=== PATIENT | female | born 1970 | race African-American/Black ===

== ENCOUNTER 2016-07-19 15:06 | Emergency (ER) | payer BC, OTHER ==
[2016-07-19 15:19] VITALS: BP 125/74; PULSE 87; TEMP 98.5; BMI 37.4
--- NOTE | 2016-07-19 16:15 | PDOC ---
History of Present Illness - General Chief Complaint: Headache Stated Complaint: LT EYE PAIN, HEADACHE Time Seen by Provider: 07/19/16 16:13 History Source: Patient, Parent(s) Exam Limitations: No Limitations - History of Present Illness Initial Comments: 07/19/16 16:29 Patient here with complaints of left eye pain pain. States is in school studying psychology, and has been doing excessive amounts of reading with her class work and states while doing her studying has onset of pain to her left eye. Patient does not suffer from headaches, has had no fever, earache, sore throat pain or cough. Has used Motrin yesterday with some relief of pain. Denies trauma to her eye, denies visual changes, denies any discharge or redness to her eye. No one at home sick with conjunctivitis. Full-time, attend school in the evening, and spends multiple hours after school studying. Wears glasses for reading 07/19/16 16:33 2-3 days Severity: Yes: mild, moderate Associated Symptoms: reports: fever/chills. denies: confusion, fatigue Past History - Travel Traveled outside of the country in the last 30 days: No Close contact w/someone who was outside of country & ill: No - Past Medical History Allergies/Adverse Reactions: Allergies Allergy/AdvReac Type Severity Reaction Status Date / Time No Known Allergies Allergy Verified 07/19/16 15:16 Home Medications: Ambulatory Orders Albuterol 0.083% Nebulizer Eli [Ventolin 0.083%] 1 neb NEB Q4H PRN 03/19/15 Naproxen [Naprosyn] 500 mg PO BID PRN #20 tablet 03/19/15 Asthma: Yes Cancer: No GI Disorders: No HTN: No - Family Disease History Family Disease History: Diabetes: Grandparents, Father, Heart Disease: Father - Reproductive History (#): 4 Para: 4 - Immunization History Immunization Up to Date: Yes - Psycho/Social/Smoking Cessation Hx Anxiety: No Suicidal Ideation: No Smoking Status: No Smoking History: Never smoked Number of Cigarettes Smoked Daily: 0 Information on smoking cessation initiated: No Hx Alcohol Use: No Drug/Substance Use Hx: No Substance Use Type: None Review of Systems - Review of Systems Able to Perform ROS?: Yes Is the patient limited Nepali proficient: Yes Constitutional: Yes: Symptoms Reported, See HPI. No: Fever HEENTM: Yes: Symptoms Reported, See HPI, Eye Pain. No: Blurred Vision, Tearing , Recent change in vision, Double Vision, Ear Pain, Throat Pain Respiratory: Yes: Symptoms reported. No: Cough All Other Systems: Reviewed and Negative *Physical Exam - Vital Signs Last Vital Signs Temp Pulse Resp BP Pulse Ox 98.5 F 87 20 125/74 95 07/19/16 15:16 07/19/16 15:16 07/19/16 15:16 07/19/16 15:16 07/19/16 15:16 - Physical Exam General Appearance: Yes: Appropriately Dressed, Apparent Distress HEENT: positive: JOHNATHAN, Normal ENT Inspection, TMs Normal, Pharynx Normal. negative: Rhinorrhea Neck: positive: Tender, Supple, Lymphadenopathy (R), Lymphadenopathy (L) Respiratory/Chest: positive: Lungs Clear, Normal Breath Sounds Integumentary: positive: Normal Color, Dry, Warm Neurologic: positive: skull grinder II-XII NML intact, Fully Oriented, Alert, Normal Mood/ Affect, Normal Response, Motor Strength 5/5 Progress Note - Progress Note Progress Note: Patient with eyestrain, will recommend lubricating drops, frequent rest periods between heavy reading, and follow-up with shear grinder operator for thorough eye exam. *DC/Admit/Observation/Transfer Diagnosis at time of Disposition: Eyestrain, left - Discharge Dispostion Disposition: HOME Condition at time of disposition: Stable Admit: No - Referrals Referrals: Pattie Orozco [Primary Care Provider] - Daniel Lazar MD [Staff Physician] - - Patient Instructions Printed Discharge Instructions: DI for Eye Pain Additional Instructions: Rest, avoid rubbing eyes Wash hands frequently avoid excessive reading episodes, and be sure to use reading glasses. Use lubricating drops to keep eyes moist, not Visine. May use ibuprofen 2 tablets every 6 hours as needed for pain relief Followup with ophthalmology for thorough eye evaluation Return to emergency department for worsened pain, visual changes, redness or draining from eye, or worsened headache. - Post Discharge Activity Work/School Note: Back to Work
[2016-07-19] MEDS ORDERED: IBUPROFEN 600 MG TABLET (FP) PO ONE ×2 (16:28→16:29)
== END 2016-07-19 17:00 | disposition home or self-care (01) ==
LOC: JERFT 15:06
DX: H53.19 Other subjective visual disturbances (principal)
CPT/HCPCS: 99281-25

== ENCOUNTER 2017-03-22 16:34 | Emergency (ER) | payer OTHER ==
[2017-03-22 16:40] VITALS: BP 141/80; PULSE 90; TEMP 98.2; BMI 37.8
--- NOTE | 2017-03-22 17:02 | PDOC ---
History of Present Illness - General Chief Complaint: Pain Stated Complaint: PAIN Time Seen by Provider: 03/22/17 16:43 History Source: Patient Exam Limitations: No Limitations - History of Present Illness Initial Comments: 03/22/17 16:57 Patient is a 46-year-old female, history of asthma presents with macular pruritic lesions to bilateral feet. Patient denies any new lotion soaps or detergents, denies travel. Past Medical History: Denies. Allergies: No known allergies Medications: None Family History: Non-contributory Social History: Denies smoking, alcohol use, or IVDU Review of Systems GENERAL/CONSTITUTIONAL: No fever or chills. No weakness. No weight change. HEAD, EYES, EARS, NOSE AND THROAT: No change in vision. No ear pain or discharge. No sore throat. CARDIOVASCULAR: No chest pain or shortness of breath. RESPIRATORY: No cough, wheezing, or hemoptysis. GASTROINTESTINAL: No nausea, vomiting, diarrhea or constipation. No rectal bleeding. GENITOURINARY: No dysuria, frequency, or change in urination. MUSCULOSKELETAL: No joint or muscle swelling or pain. No neck or back pain. SKIN : No rash or easy bruising. Macular pruritic lesions to bilateral second third fourth and fifth toes. NEUROLOGIC: No headache, vertigo, loss of consciousness, or loss of sensation. ENDOCRINE: No increased thirst. No abnormal weight change. HEMATOLOGIC/LYMPHATIC: No anemia, easy bleeding, or history of blood clots. ALLERGIC/IMMUNOLOGIC: No hives or skin allergy. No latex allergy. Physical Exam: GENERAL: The patient is awake, alert, and fully oriented, in no acute distress. HEAD: Normal with no signs of trauma. EYES: Pupils equal, round and reactive to light, extraocular movements intact, sclera anicteric, conjunctiva clear. ENT: Ears normal, nares patent, oropharynx clear without exudates. Moist mucous membranes. No uvula deviation NECK: Normal range of motion, supple without lymphadenopathy, JVD, or masses. LUNGS: Breath sounds equal, clear to auscultation bilaterally. No wheezes, and no crackles. HEART: Regular rate and rhythm, normal S1 and S2 without murmur, rub or gallop. ABDOMEN: Soft, nontender, normoactive bowel sounds. No guarding, no rebound. No masses. No bruising or abrasions MUSCULOSKELETAL: Normal range of motion, no edema. No clubbing or cyanosis. No cords, erythema, or tenderness. No CVA Tenderness with fist. SKIN: Warm, Dry, normal turgor, Macular pruritic lesions to bilateral second third fourth and fifth toes. Edema to bilateral feet patient reports area started to become edematous after scratching Past History - Past Medical History Allergies/Adverse Reactions: Allergies Allergy/AdvReac Type Severity Reaction Status Date / Time No Known Allergies Allergy Verified 03/22/17 16:38 Home Medications: Ambulatory Orders Permethrin 5% Topical Cream [Elimite -] 1 applic TP WEEKLY #2 tube 03/22/17 Asthma: Yes Cancer: No GI Disorders: No HTN: No - Family Disease History Family Disease History: Diabetes: Grandparents, Father, Heart Disease: Father - Reproductive History (#): 4 Para: 4 - Immunization History Immunization Up to Date: Yes - Suicide/Smoking/Psychosocial Hx Smoking Status: No Smoking History: Never smoked Number of Cigarettes Smoked Daily: 0 Hx Alcohol Use: No Drug/Substance Use Hx: No Substance Use Type: None *Physical Exam - Vital Signs Last Vital Signs Temp Pulse Resp BP Pulse Ox 98.2 F 90 18 141/80 98 03/22/17 16:37 03/22/17 16:37 03/22/17 16:37 03/22/17 16:37 03/22/17 16:37 Medical Decision Making - Medical Decision Making 03/22/17 17:03 A/P: Patient here for evaluation of macular pruritic lesions to bilateral feet which started on 03/18/2017. Findings consistent with scabies will discharge on Elimite cream, with strict instructions for application and follow- up follow-up with dermatology. I discussed the physical exam findings, ancillary test results and final diagnoses with the patient. I answered all of the patient's questions. The patient was satisfied with the care received and felt comfortable with the discharge plan and treatment plan. The patient will call to arrange follow-up and will return to the Emergency Department with any new, persistent or worsening symptoms. *DC/Admit/Observation/Transfer Diagnosis at time of Disposition: Scabies - Discharge Dispostion Disposition: HOME Condition at time of disposition: Good Admit: No - Prescriptions Prescriptions: Permethrin 5% Topical Cream [Elimite -] 1 applic TP WEEKLY #2 tube - Referrals Referrals: Lincoln Saha [Non Staff, Medical] - ([phone]) - Patient Instructions Printed Discharge Instructions: DI for Scabies Additional Instructions: Please apply cream from head to toe leave on for 8 hours then wash off, repeat again in one week I do recommend washing sheets and towels in your home with high heat. If symptoms start to worsen him including fever, increased redness or swelling, may return back to ER, if symptoms do not resolve recommend follow-up with dermatology - Post Discharge Activity Forms/Work/School Notes: Back to Work
== END 2017-03-22 17:04 | disposition home or self-care (01) ==
LOC: JERFT 16:34
DX: B86 Scabies (principal)
CPT/HCPCS: 99281-25

== ENCOUNTER 2017-03-24 14:59 | Emergency (ER) | payer OTHER ==
[2017-03-24 15:08] VITALS: BMI 37.8
[2017-03-24] MEDS ORDERED: CLINDAMYCIN 600MG PREMIX IVPB 50 ML IVPB ONE ×3 (15:46→16:07)
[2017-03-24] MEDS ORDERED: KETOROLAC TROMETHAMINE 30 MG/1 ML VIAL IVPUSH ONE (15:47)
--- NOTE | 2017-03-24 15:53 | PDOC ---
History of Present Illness - General Chief Complaint: Edema Stated Complaint: LEGS PAIN Time Seen by Provider: 03/24/17 15:37 History Source: Patient - History of Present Illness Occurred: reports: other Lower Extremity Pain Location: bilateral: foot Past History - Past Medical History Allergies/Adverse Reactions: Allergies Allergy/AdvReac Type Severity Reaction Status Date / Time No Known Allergies Allergy Verified 03/24/17 15:08 Home Medications: Ambulatory Orders Permethrin 5% Topical Cream [Elimite -] 1 applic TP WEEKLY #2 tube 03/22/17 Clindamycin [Cleocin -] 300 mg PO Q6HPO #28 capsule 03/24/17 Terbinafine [Lamisil At] 12 gm TP BID #1 gel..gram. 03/24/17 Asthma: Yes Cancer: No GI Disorders: No HTN: No - Family Disease History Family Disease History: Diabetes: Grandparents, Father, Heart Disease: Father - Reproductive History (#): 4 Para: 4 - Immunization History Immunization Up to Date: Yes - Suicide/Smoking/Psychosocial Hx Smoking Status: No Smoking History: Never smoked Number of Cigarettes Smoked Daily: 0 Hx Alcohol Use: No Drug/Substance Use Hx: No Substance Use Type: None Review of Systems - Review of Systems Constitutional: No: Chills, Fever *Physical Exam - Vital Signs Last Vital Signs Temp Pulse Resp BP Pulse Ox 99.3 F 84 20 119/65 100 03/24/17 15:04 03/24/17 15:04 03/24/17 15:04 03/24/17 15:04 03/24/17 15:04 - Physical Exam General Appearance: Yes: Appropriately Dressed, Mild Distress HEENT: positive: Normal Voice Neck: positive: Supple Respiratory/Chest: negative: Respiratory Distress Extremity: positive: Other (white, macerated skin between the toes b/l w/ swelling of L toes extending into dorsum of L foot w/ sig ttp, no erythema appreciated but increased warmth to touch) Integumentary: positive: Dry, Warm Neurologic: positive: Fully Oriented, Alert, Normal Mood/Affect ED Treatment Course - LABORATORY CBC & Chemistry Diagram: 03/24/17 16:12 03/24/17 16:12 - RADIOLOGY Radiology Studies Ordered: Category Date Time Status FOOT-LEFT [RAD] Stat Radiology 03/24/17 15:46 Ordered Medical Decision Making - Medical Decision Making 03/24/17 15:49 46-year-old morbidly obese, patient presenting with painful rash to feet bilaterally. Patient reports developing itching to feet 5 days ago and then 3 days ago noticed rash between toes. States she was seen in the ED and prescribed permethrin for possibly scabies. States she applied cream to affected areas with no relief. States there is some swelling and pain to dorsum of left foot now. Denies any fever or chills. No history of similar episode in the past See exam Interdigital tenia pedis bilaterally, L>R with suspected overlying cellulitis of left foot. Patient stable in ED with white macerated skin between toes bilaterally with swelling of left toes extending into dorsum of left foot with significant tenderness to palpation, unable to appreciate any erythema, pedal pulses intact -pain control -abx -XR -labs -dispo pending 03/24/17 15:54 03/24/17 17:57 03/24/17 18:46 Labs and XR unremarkable. Local wound care in ED. Dc w/ lamisil and clinda. To return for wound check in 2 days. To f/u with podiatry in near future *DC/Admit/Observation/Transfer Diagnosis at time of Disposition: Cellulitis of foot Tinea pedis Qualifiers: Laterality: bilateral Qualified Code(s): B35.3 - Tinea pedis - Discharge Dispostion Disposition: HOME Condition at time of disposition: Good - Prescriptions Prescriptions: Clindamycin [Cleocin -] 300 mg PO Q6HPO #28 capsule Terbinafine [Lamisil At] 12 gm TP BID #1 gel..gram. - Referrals Referrals: Dakota Wells MD [Staff Physician] - - Patient Instructions Printed Discharge Instructions: DI for Athlete's Foot, Cellulitis Additional Instructions: Apply lamisil as directed to affected areas x 1 week and keep affected areas covered while it heals Take antibiotics as directed Return to ED in 2 days for wound check, sooner if symptoms worsen Please follow up with Dr Wells of podiatry in 1-2 weeks - Post Discharge Activity Forms/Work/School Notes: Back to Work
[2017-03-24] MEDS ORDERED: KETOROLAC TROMETHAMINE 30 MG/1 ML VIAL ONE ×2 (16:06→16:47)
[2017-03-24 16:30] LABS: BASOPHIL 0.5 % (0-2.0); EOSINOPHIL 7.1 % (0-4.5); MCH 27.7 pg (25.7-33.7); MCHC 32.7 g/dl (32.0-36.0); MEAN CELL VOLUME 84.8 fl (80-96); MEAN PLT VOLUME 9.6 fl (7.5-11.1); NEUTROPHILS 57.1 % (42.8-82.8); PLATELET COUNT 254 K/MM3 (134-434); RDW 14.1 % (11.6-15.6); WHITE BLOOD COUNT 10.2 K/mm3 (4.0-10.0)
[2017-03-24] MEDS ORDERED: CLINDAMYCIN PHOSPHATE 600 MG/4 ML VIAL ONE (16:47)
[2017-03-24 16:53] LABS: ALBUMIN 3.7 g/dl (3.4-5.0); ANION GAP 9 (8-16); BILIRUBIN,TOTAL 0.2 mg/dL (0.2-1.0); CALCIUM 8.9 mg/dL (8.5-10.1); CO2 27 mmol/L (21-32); CREATININE 0.9 mg/dL (0.55-1.02); GLUCOSE,RANDOM 88 mg/dL (74-106); SGOT/AST 24 U/L (15-37); SGPT/ALT 25 U/L (12-78); TOT PROT 7.7 g/dl (6.4-8.2)
[2017-03-24 16:54] LABS: ALK PHOS 98 U/L (45-117)
[2017-03-24 18:01] LABS: URINE APPEARANCE CLEAR; URINE BILIRUBIN NEGATIVE (NEGATIVE); URINE BLOOD NEGATIVE (NEGATIVE); URINE COLOR LTYELLOW; URINE GLUCOSE (UA) NEGATIVE (NEGATIVE); URINE KETONE NEGATIVE (NEGATIVE); URINE NITRITE NEGATIVE (NEGATIVE); URINE PROTEIN NEGATIVE (NEGATIVE); URINE UROBILINOGEN NEGATIVE mg/dL (0.2-1.0)
[2017-03-24 19:02] VITALS: BP 122/74; PULSE 80; TEMP 98.6
[2017-03-24 19:33] LABS: URINE LEUK ESTERASE Negative (NEGATIVE)
== END 2017-03-24 19:02 | disposition home or self-care (01) ==
LOC: JER 14:59
PROC: 3E03329 Introduction of Other Anti-infective into Peripheral Vein, Percutaneous Approach (ICD-10-PCS; principal; 2017-03-24)
PROC: 3E0333Z Introduction of Anti-inflammatory into Peripheral Vein, Percutaneous Approach (ICD-10-PCS; 2017-03-24)
DX: L03.116 Cellulitis of left lower limb (principal); B35.3 Tinea pedis
CPT/HCPCS: 36415; 73630-TC-LT; 80053; 81003; 85025; 96365; 96375; 99285-25

== ENCOUNTER 2017-10-04 16:57 | Emergency (ER) | payer OTHER ==
[2017-10-04 17:09] VITALS: BP 129/65; PULSE 82; TEMP 98.3; BMI 39.6
--- NOTE | 2017-10-04 17:10 | PDOC ---
Rapid Medical Evaluation Time Seen by Provider: 10/04/17 17:05 Medical Evaluation: Allergies Allergy/AdvReac Type Severity Reaction Status Date / Time No Known Allergies Allergy Verified 10/04/17 17:05 10/04/17 17:05 I have performed a brief in-person evaluation of the patient. The patient presents with a chief complaints of sore throat x 1 week with nausea Also reports swelling of both feet x 2 days. Denies shortness of breath or chest pain. Pertinent physical exam findings: NAD lungs clear bilateral heart s1s2 non pitting pedal edema I have ordered the following: none The patient will proceed to the ED for further evaluation.
--- NOTE | 2017-10-04 17:33 | PDOC ---
History of Present Illness - General Chief Complaint: Sore Throat Stated Complaint: PAIN Time Seen by Provider: 10/04/17 17:05 - History of Present Illness Initial Comments: 10/04/17 18:22 The patient is a 46 year old female with a history of asthma who presents for evaluation of sore throat and leg swelling. The patient notes a 1 week history of sore throat with associated nausea that has not improved. She noted some lower extremity swelling 1 day ago with her right leg worse than her left that has worsened over the past 24 hours prompting her presentation to the ED for evaluation. She otherwise denies fevers, chills, cough, SOB, chest pain, vomiting, abdominal pain, or changes with urination or bowel movements. Past History - Past Medical History Allergies/Adverse Reactions: Allergies Allergy/AdvReac Type Severity Reaction Status Date / Time No Known Allergies Allergy Verified 10/04/17 17:05 Home Medications: Ambulatory Orders NK [No Known Home Medication] 10/04/17 Asthma: Yes Cancer: No COPD: No GI Disorders: No HTN: No - Family Disease History Family Disease History: Diabetes: Grandparents, Father, Heart Disease: Father - Reproductive History (#): 4 Para: 4 - Immunization History Immunization Up to Date: Yes - Suicide/Smoking/Psychosocial Hx Smoking Status: No Smoking History: Never smoked Number of Cigarettes Smoked Daily: 0 Hx Alcohol Use: No Drug/Substance Use Hx: No Substance Use Type: None Review of Systems - Review of Systems Comments:: 10/04/17 18:25 Constitutional: No fevers, chills, fatigue, malaise HEENT: Sore Throat. No Rhinorrhea, nasal congestion, visual changes Cardiovascular: No chest pain, syncope, palpitations, lightheadedness Respiratory: No Cough, SOB, Hemoptysis, Gastrointestinal: No Abdominal pain, Nausea, Vomiting, Constipation, Diarrhea, Melena Genitourinary: No Dysuria, Frequency, Urgency, Hesitancy, Hematuria, Flank pain Musculoskeletal: Lower extremity swelling right worse then left. No Myalgia, arthralgia Skin: No rashes, itching, bruising, pallor Neurologic: No Headache, Dizziness, Numbness, Weakness, or Tingling Psychiatric: No Hallucinations. No SI or HI *Physical Exam - Vital Signs Last Vital Signs Temp Pulse Resp BP Pulse Ox 98.3 F 82 18 129/65 100 10/04/17 17:05 10/04/17 17:05 10/04/17 17:05 10/04/17 17:05 10/04/17 17:05 - Physical Exam Comments: 10/04/17 18:25 General Appearance: Nourished. No Apparent Distress HEENT: EOMI, JOHNATHAN. Mild Pharyngeal Erythema, No Tonsillar Exudate, Tonsillar Erythema Neck: No Cervical Lymphadenopathy Respiratory/Chest: Lungs Clear, Normal Breath Sounds. No Crackles, Rales, Rhonchi, Wheezing Cardiovascular: Regular Rhythm, Regular Rate. No Murmur, Gallops, Rubs Gastrointestinal/Abdominal: Normal Bowel Sounds, Soft. No Guarding, Rebound, Tenderness Musculoskeletal: No CVA Tenderness Extremity: Trace lower extremity swelling noted bilaterally right worse then the left. Normal Capillary Refill Integumentary: Normal Color, Dry, Warm Neurologic: Fully Oriented, Alert, Normal Mood/Affect, Normal Response, ED Treatment Course - LABORATORY CBC & Chemistry Diagram: 10/04/17 18:34 10/04/17 21:10 Medical Decision Making - Medical Decision Making 10/04/17 18:29 The patient is a 46 year old female with a history of asthma who presents for evaluation of sore throat and leg swelling. Differential includes but is not limited to: Strep Pharyngitis, DVT, Renal Disease, Infectious, Metabolic derangement. Given the patient's history and physical exam, we will obtain a cbc, cmp, bnp, lipase, rapid strep and DVT US to evaluate further for potential etiologies. We will treat in the meantime with tylenol and continue to monitor and reassess. 10/04/17 20:51 CBC, cmp, bnp, lipase are unremarkable. Rapid Strep is negative. DVT US is unremarkable as read by our radiologist. The patient's symptoms are likely due to a viral syndrome. We are comfortable discharging the patient home at this time with primary care provider follow up. We discussed the results, plan and return precautions with the patient who voiced understanding and is agreeable with the plan. *DC/Admit/Observation/Transfer Diagnosis at time of Disposition: Sore throat - Discharge Dispostion Disposition: HOME Condition at time of disposition: Good Admit: No - Referrals Referrals: Hector Johnson MD [Primary Care Provider] - - Patient Instructions Printed Discharge Instructions: DI for Viral Pharyngitis Additional Instructions: Please return to the ER if you experience concerning or worsening symptoms including worsening pain, chest pain, difficulty breathing, vomiting, or fevers. Your lab results were normal here in the ER. Your US was normal here in the ER. Your symptoms are likely due to a viral illness. You may use tylenol or ibuprofen as needed at home to help manage your symptoms. Please call to schedule a follow up appointment with your primary care provider within 2-3 days to discuss your ER visit and further management of your symptoms. - Post Discharge Activity
[2017-10-04] MEDS ORDERED: ACETAMINOPHEN 325 MG TABLET (FP) PO ONE (18:10)
[2017-10-04] MEDS ORDERED: ACETAMINOPHEN 325 MG TABLET (FP) ONE (18:23)
--- NOTE | 2017-10-04 18:55 | PDOC ---
Attending Attestation - HPI HPI: 10/04/17 19:19 The patient is a 46 year old female with past medical history of asthma who presents to the ED with complaints of sore throat and leg swelling. The patient states her throat became sore 6 days ago and has gotten worse over the past day , stating that she is starting to lose her voice. She also noticed worsening bilateral lower extremity swelling, right worse than left that began 1 day ago. She denies any injury, long periods of sitting, or recent travel. She denies any shortness of breath, cough, chest pain, palpitations, or diaphoresis. Denies fever or chills. - Physicial Exam PE: 10/04/17 19:39 GENERAL: Awake, alert, and fully oriented, in no acute distress HEAD: No signs of trauma EYES: PERRLA, EOMI, sclera anicteric, conjunctiva clear ENT: Auricles normal inspection, hearing grossly normal, nares patent, oropharynx clear without exudates. Moist mucosa NECK: Normal ROM, supple, no lymphadenopathy, JVD, or masses LUNGS: Breath sounds equal, clear to auscultation bilaterally. No wheezes, and no crackles HEART: Regular rate and rhythm, normal S1 and S2, no murmurs, rubs or gallops ABDOMEN: Soft, nontender, normoactive bowel sounds. No guarding, no rebound. No masses EXTREMITIES: Mild ankle swelling bilaterally. Normal range of motion. No clubbing or cyanosis. No cords, erythema, or tenderness NEUROLOGICAL: Cranial nerves II through XII grossly intact. Normal speech, normal gait SKIN: Warm, Dry, normal turgor, no rashes or lesions noted. - Medical Decision Making 10/04/17 19:19 Documentation prepared by Hien Matson, acting as director global medical affairs for Carolina Gross MD. <Hien Matson - Last Filed: 10/04/17 19:39> - Resident Resident Name: Mathew Johnston - ED Attending Attestation I have performed the following: I have examined & evaluated the patient, The case was reviewed & discussed with the resident, I agree w/resident's findings & plan, Exceptions are as noted - Medical Decision Making 46 yo F with h/o asthma here with sore throat , denies cough or sob. not feeling well for one week. no sick contacts. no travel. also c/o right leg swelling no ho pe or dvt. differential: viral syndrome, strept, renal insufficiency, dvt, horne cyst plan us right leg, labs cxr rapid strept. 10/04/17 20:03 <Carolina Gross - Last Filed: 10/04/17 20:05>
[2017-10-04 19:24] LABS: BASO % 0.4 % (0-2.0); EOS % 5.1 % (0-4.5); HEMATOCRIT 35.8 % (32.4-45.2); HEMOGLOBIN 11.7 GM/dL (10.7-15.3); MCHC 32.7 g/dl (32.0-36.0); MEAN CELL VOLUME 85.6 fl (80-96); MEAN PLT VOLUME 9.9 fl (7.5-11.1); MONO % 6.2 % (3.8-10.2); NEUT % 52.3 % (42.8-82.8); PLATELET COUNT 231 K/MM3 (134-434); RBC 4.18 M/mm3 (3.60-5.2); RDW 14.9 % (11.6-15.6); WHITE BLOOD COUNT 9.4 K/mm3 (4.0-10.0)
[2017-10-04 21:46] LABS: ALBUMIN 3.1 g/dl (3.4-5.0); ANION GAP 3 (8-16); BLOOD UREA NITROGEN 9 mg/dL (7-18); CHLORIDE 109 mmol/L (98-107); CO2 30 mmol/L (21-32); GLUCOSE,RANDOM 99 mg/dL (74-106); LIPASE 83 U/L (73-393); POTASSIUM 3.7 mmol/L (3.5-5.1); SGOT/AST 20 U/L (15-37); SGPT/ALT 25 U/L (12-78); SODIUM 142 mmol/L (136-145)
[2017-10-04 21:51] LABS: ALK PHOS 88 U/L (45-117); BILIRUBIN,TOTAL 0.2 mg/dL (0.2-1.0); CREATININE 0.8 mg/dL (0.55-1.02); N-TERMINAL BNP 12.67 pg/ml (5-125); TOT PROT 6.7 g/dl (6.4-8.2)
== END 2017-10-04 22:25 | disposition home or self-care (01) ==
LOC: JER 16:57
DX: J02.9 Acute pharyngitis, unspecified (principal); B97.89 Other viral agents as the cause of diseases classified elsewhere; R60.0 Localized edema
CPT/HCPCS: 36415; 80053; 83690; 83880; 85025; 87070; 87430; 93970-TC; 99282-25

== ENCOUNTER 2018-02-15 20:26 | Emergency (ER) | payer OTHER ==
[2018-02-15 20:31] VITALS: BP 125/68; PULSE 90; TEMP 98; BMI 37.8
--- NOTE | 2018-02-15 21:05 | PDOC ---
History of Present Illness - General Chief Complaint: Pain Stated Complaint: RT KNEE PAIN Time Seen by Provider: 02/15/18 20:58 - History of Present Illness Initial Comments: 47-year-old female without comorbidities presents for evaluation of atraumatic onset of right knee pain 3 days. She points to the medial aspect of her right knee as the area of her discomfort she describes her pain as sharp exacerbated with activity and relieved with rest. No radiation. 02/15/18 21:02 Past History - Past Medical History Allergies/Adverse Reactions: Allergies Allergy/AdvReac Type Severity Reaction Status Date / Time No Known Allergies Allergy Verified 02/15/18 20:31 Home Medications: Ambulatory Orders NK [No Known Home Medication] 10/04/17 Asthma: Yes Cancer: No COPD: No GI Disorders: No HTN: No - Family Disease History Family Disease History: Diabetes: Grandparents, Father, Heart Disease: Father - Reproductive History (#): 4 Para: 4 - Immunization History Immunization Up to Date: Yes - Suicide/Smoking/Psychosocial Hx Smoking Status: No Smoking History: Never smoked Number of Cigarettes Smoked Daily: 0 Hx Alcohol Use: No Drug/Substance Use Hx: No Substance Use Type: None Review of Systems - Review of Systems Musculoskeletal: Yes: See HPI, Joint Pain All Other Systems: Reviewed and Negative *Physical Exam - Vital Signs Last Vital Signs Temp Pulse Resp BP Pulse Ox 98 F 90 18 125/68 99 02/15/18 20:28 02/15/18 20:28 02/15/18 20:28 02/15/18 20:28 02/15/18 20:28 - Physical Exam Comments: Right knee skin color and temperature are normal range of motion 0-90 with pain at terminal flexion. She has medial joint line tenderness no other areas of tenderness. No patellofemoral crepitation no evidence of instability. Thigh and calf is soft and nontender she has negative straight leg raise test. She is neurovascularly intact full nonpainful range of motion of the hip and ankle. 02/15/18 21:03 *DC/Admit/Observation/Transfer Diagnosis at time of Disposition: Knee pain - Discharge Dispostion Disposition: HOME Condition at time of disposition: Stable Decision to Admit order: No - Referrals Referrals: Hector Johnson MD [Primary Care Provider] - Hernan Gardiner MD [Staff Physician] - - Patient Instructions Printed Discharge Instructions: DI for Knee Pain Additional Instructions: Take Tylenol and Motrin as directed for pain. Return to the emergency room should symptoms worsen or go unresolved. Please follow-up with orthopedic surgery in 2-3 days for further evaluation and treatment options. - Post Discharge Activity
== END 2018-02-15 21:09 | disposition home or self-care (01) ==
LOC: JERFT 20:26
DX: M25.561 Pain in right knee (principal)
CPT/HCPCS: 99281-25

== ENCOUNTER 2018-11-25 08:54 | Emergency (ER) | payer OTHER ==
[2018-11-25 09:03] VITALS: BMI 41.5
[2018-11-25] MEDS ORDERED: SODIUM CHLORIDE 0.9% 500 ML INFUS.BAG IV ONE (09:39)
[2018-11-25] MEDS ORDERED: ACETAMINOPHEN 500 MG TABLET (FP) PO ONE (10:04)
[2018-11-25] MEDS ORDERED: ACETAMINOPHEN 500 MG TABLET (FP) ONE (10:31)
[2018-11-25 10:40] LABS: BASO % 0.4 % (0-2.0); HEMATOCRIT 37.1 % (32.4-45.2); MCH 28.2 pg (25.7-33.7); MCHC 32.4 g/dl (32.0-36.0); MEAN CELL VOLUME 87.1 fl (80-96); MEAN PLT VOLUME 9.9 fl (7.5-11.1); MONO % 7.2 % (3.8-10.2); NEUT % 75.4 % (42.8-82.8); RBC 4.26 M/mm3 (3.60-5.2); RDW 13.4 % (11.6-15.6); WHITE BLOOD COUNT 12.5 K/mm3 (4.0-10.0)
[2018-11-25 10:46] LABS: PLATELET COUNT 186 K/MM3 (134-434)
[2018-11-25 10:56] LABS: BILIRUBIN,TOTAL 0.4 mg/dL (0.2-1); BLOOD UREA NITROGEN 9.3 mg/dL (7-18); CALCIUM 8.3 mg/dL (8.5-10.1); CREATININE 0.9 mg/dL (0.55-1.3); POTASSIUM 4.3 mmol/L (3.5-5.1); TOT PROT 6.7 g/dl (6.4-8.2)
--- NOTE | 2018-11-25 11:08 | PDOC ---
Documentation entered by Marleny Rachel SCRIBE, acting as scribe for Rosana Eric MD. Rosana Eric MD: This documentation has been prepared by the briceibWilson ayers Lincy, SCRIBE, under my direction and personally reviewed by me in its entirety. I confirm that the documentation accurately reflects all work, treatment, procedures, and medical decision making performed by me. History of Present Illness - General Chief Complaint: Pain, Acute Stated Complaint: FEVER/ ABD.PAIN Time Seen by Provider: 11/25/18 09:21 History Source: Patient Exam Limitations: No Limitations - History of Present Illness Initial Comments: 11/25/18 10:01 The patient is a 48 year old female with no reported significant past medical history presents to the emergency department with a fever, abdominal pain and diarrhea. The patient presents with 2 days of fever and abdominal pain and diarrhea. The patient reports on Saturday the fever was recorded to be 101, which elevated to 102, with mild improvement with Tylenol. The patient reports shes been having abdominal pain associated with nonbloody, watery diarrhea. The patient reports she was concerned today secondary to having episodes of lightheadedness. Denies fall, head injury or LOC. Denies past surgical history reported. Denies nausea, vomiting, urinary symptoms. Allergies: Seasonal allergies. Social history: Denies the use of tobacco, alcohol or tobacco use. Past History - Past Medical History Allergies/Adverse Reactions: Allergies Allergy/AdvReac Type Severity Reaction Status Date / Time No Known Allergies Allergy Verified 11/25/18 11:49 Home Medications: Ambulatory Orders NK [No Known Home Medication] 10/04/17 Asthma: Yes Cancer: No COPD: No GI Disorders: No HTN: No - Family Disease History Family Disease History: Diabetes: Grandparents, Father, Heart Disease: Father - Reproductive History (#): 4 Para: 4 - Immunization History Immunization Up to Date: Yes - Suicide/Smoking/Psychosocial Hx Smoking Status: No Smoking History: Never smoked Have you smoked in the past 12 months: No Number of Cigarettes Smoked Daily: 0 Information on smoking cessation initiated: No Hx Alcohol Use: No Drug/Substance Use Hx: No Substance Use Type: None Review of Systems - Review of Systems Able to Perform ROS?: Yes Comments:: 11/25/18 10:01 GENERAL/CONSTITUTIONAL: +fever no chills, No weakness. HEAD, EYES, EARS, NOSE AND THROAT: No change in vision. No ear pain or discharge. No sore throat. CARDIOVASCULAR: No chest pain or shortness of breath. RESPIRATORY: No cough, wheezing, or hemoptysis. GASTROINTESTINAL: +abdominal pain and diarrhea. No nausea, vomiting, hematochezia, melena or constipation. GENITOURINARY: No dysuria, frequency, or change in urination. MUSCULOSKELETAL: No joint or muscle swelling or pain. No neck or back pain. SKIN: No rash NEUROLOGIC: +lightheadedness. No headache, vertigo, loss of consciousness, or change in strength/sensation. ENDOCRINE: No increased thirst. No abnormal weight change. HEMATOLOGIC/LYMPHATIC: No anemia, easy bleeding, or history of blood clots. ALLERGIC/IMMUNOLOGIC: No hives or skin allergy. *Physical Exam - Vital Signs Last Vital Signs Temp Pulse Resp BP Pulse Ox 101.3 F H 116 H 16 115/60 99 11/25/18 08:59 11/25/18 08:59 11/25/18 08:59 11/25/18 08:59 11/25/18 08:59 - Physical Exam Comments: 11/25/18 10:04 GENERAL: Awake, alert, and fully oriented, in no acute distress HEAD: No signs of trauma EYES: PERRLA, EOMI, sclera anicteric, conjunctiva clear ENT: Auricles normal inspection, hearing grossly normal, nares patent, oropharynx clear without exudates. Moist mucosa NECK: Normal ROM, supple, no lymphadenopathy, JVD, or masses LUNGS: Breath sounds equal, clear to auscultation bilaterally. No wheezes, and no crackles HEART: +slight tachycardia. Regular rate and rhythm, normal S1 and S2, no murmurs, rubs or gallops ABDOMEN: Soft, nontender. No guarding, no rebound. No masses EXTREMITIES: Normal range of motion, no edema. No clubbing or cyanosis. No cords, erythema, or tenderness NEUROLOGICAL: Cranial nerves II through XII grossly intact. Normal speech, normal gait SKIN: Warm, Dry, normal turgor, no rashes or lesions noted. ED Treatment Course - LABORATORY CBC & Chemistry Diagram: 11/25/18 10:15 11/25/18 10:15 - ADDITIONAL ORDERS Additional order review: Laboratory Results 11/25/18 11/25/18 10:15 10:15 Sodium 138 Potassium 4.3 Chloride 108 H Carbon Dioxide 23 Anion Gap 7 L BUN 9.3 Creatinine 0.9 Est GFR (CKD-EPI)AfAm 87.02 Est GFR (CKD-EPI)NonAf 75.08 Random Glucose 105 Calcium 8.3 L Total Bilirubin 0.4 AST 36 ALT 20 Alkaline Phosphatase 72 Total Protein 6.7 Albumin 3.0 L Urine HCG, Qual Negative 11/25/18 10:15 RBC 4.26 MCV 87.1 MCHC 32.4 RDW 13.4 D MPV 9.9 Neutrophils % 75.4 D Lymphocytes % 17.0 D Monocytes % 7.2 Eosinophils % 0.0 D Basophils % 0.4 - Medications Given in the ED: ED Medications Discontinued Medications Generic Name Dose Route Start Last Admin Trade Name Freq PRN Reason Stop Dose Admin Acetaminophen 1,000 mg 11/25/18 10:04 11/25/18 10:37 Tylenol - PO 11/25/18 10:05 1,000 mg ONCE ONE Administration Sodium Chloride 1,000 ml 11/25/18 09:39 11/25/18 10:25 Normal Saline - IV 11/25/18 09:40 1,000 ml ONCE ONE Administration Medical Decision Making - Medical Decision Making 11/25/18 11:01 Pt presents to the ED complaining of a 2 day history of diarrhea and subjective fever and lightheadness today. Likely viral gastroneteritis. Will treat with IVF, check labs to evaluate for electrolyte disturbance or dehydration and reassess. *DC/Admit/Observation/Transfer Diagnosis at time of Disposition: Diarrhea Qualifiers: Diarrhea type: infectious Qualified Code(s): A09 - Infectious gastroenteritis and colitis, unspecified - Discharge Dispostion Disposition: HOME Condition at time of disposition: Good Decision to Admit order: No - Referrals - Patient Instructions Printed Discharge Instructions: DI for Diarrhea and Traveler's Diarrhea -- Adult Additional Instructions: you came to the ED because you had diarrhea. This is most likely caused by a virus, and will get better on its own. We did blood work in the ED, which was normal. Make sure that you are drinking plenty of fluids and getting plenty of rest. REturn to the ED for fever, severe nausea and vomiting, diarrhea that persists for longer than 5 days, or abdominal pain. Call your primary care doctor for follow up tomorrow. - Post Discharge Activity
[2018-11-25 12:09] VITALS: BP 116/59; PULSE 99; TEMP 100.5
== END 2018-11-25 12:45 | disposition home or self-care (01) ==
LOC: JER 08:54
PROC: 3E0337Z Introduction of Electrolytic and Water Balance Substance into Peripheral Vein, Percutaneous Approach (ICD-10-PCS; principal; 2018-11-25)
DX: R19.7 Diarrhea, unspecified (principal)
CPT/HCPCS: 36415; 80053; 84703; 85025; 99283-25

== ENCOUNTER 2018-11-28 20:58 | Inpatient (IN) | payer OTHER ==
--- NOTE | 2018-11-28 21:02 | PDOC ---
Rapid Medical Evaluation Chief Complaint: Pain Time Seen by Provider: 11/28/18 21:00 Medical Evaluation: Allergies Allergy/AdvReac Type Severity Reaction Status Date / Time No Known Allergies Allergy Verified 11/28/18 21:01 Vital Signs Temp Pulse Resp BP Pulse Ox 98.9 F 87 18 106/65 97 11/28/18 20:59 11/28/18 20:59 11/28/18 20:59 11/28/18 20:59 11/28/18 20:59 11/28/18 21:02 I have performed a brief in-person evaluation of this patient. The patient presents with a chief complaint of: abd pain Pertinent physical exam findings:stable and in NAD, non-focal I have ordered the following:labs The patient will proceed to the ED for further evaluation.
[2018-11-28 22:55] LABS: BASO % 0.3 % (0-2.0); EOS % 1.8 % (0-4.5); HEMATOCRIT 31.7 % (32.4-45.2); HEMOGLOBIN 10.5 GM/dL (10.7-15.3); LYMPH % 41.4 % (8-40); MCH 28.5 pg (25.7-33.7); MEAN CELL VOLUME 86.3 fl (80-96); MEAN PLT VOLUME 9.1 fl (7.5-11.1); MONO % 9.4 % (3.8-10.2); NEUT % 47.1 % (42.8-82.8); PLATELET COUNT 262 K/MM3 (134-434); RBC 3.68 M/mm3 (3.60-5.2); RDW 13.8 % (11.6-15.6); WHITE BLOOD COUNT 9.6 K/mm3 (4.0-10.0)
--- NOTE | 2018-11-28 23:00 | PDOC ---
History of Present Illness - General Chief Complaint: Pain Stated Complaint: ABDOMINAL PAIN Time Seen by Provider: 11/28/18 21:00 History Source: Patient Exam Limitations: No Limitations - History of Present Illness Initial Comments: 11/28/18 22:55 [id number] with h/o asthma, ovarian cyst, , and BTL who p/w umbilical and RLQ pain worsening for the past few days. Though they are both worse, she notes that the umbilical pain has been present for the past 5 days (concurrent with the onset of fever and diarrhea for which she was seen here in the ED on and discharged home). She additionally notes the RLQ pain is actually a longer-standing issue and she had TVUS on 11/03/18 as ordered by her PCP Dr. Gandhi, which showed a 2.5x3cm right ovarian cyst and fibroid within the uterus. She notes both areas of pain are worse, sharp, non-radiating, and not associated with any other symptoms. Denies having taken any medication for pain. Last BMs were today x2 and were normal, no blood, not white or black. The pain is always present to some extent but fluctuates in intensity without pattern, doesn't change when she eats or has BM or urinates. States no f/c/n/d/v /c, vaginal bleeding/discharge, dysuria, hematuria, back pain, SOB, chest pain, lightheadedness, change in appetite, or other symptoms. Past History - Past Medical History Allergies/Adverse Reactions: Allergies Allergy/AdvReac Type Severity Reaction Status Date / Time No Known Allergies Allergy Verified 11/28/18 21:01 Home Medications: Ambulatory Orders NK [No Known Home Medication] 10/04/17 Asthma: Yes Cancer: No COPD: No GI Disorders: No HTN: No - Family Disease History Family Disease History: Diabetes: Grandparents, Father, Heart Disease: Father - Reproductive History (#): 4 Para: 4 - Immunization History Immunization Up to Date: Yes - Suicide/Smoking/Psychosocial Hx Smoking Status: No Smoking History: Never smoked Have you smoked in the past 12 months: No Number of Cigarettes Smoked Daily: 0 Hx Alcohol Use: No Drug/Substance Use Hx: No Substance Use Type: None Review of Systems - Review of Systems Able to Perform ROS?: Yes Comments:: 11/28/18 23:00 GEN: no fever, chills, malaise, generalized weakness, or weight change HEENT: no ear pain, sore throat, vision change, or eye pain CV: no chest pain, palpitations, lightheadedness, syncope, or edema RESP: no cough, wheezing, or SOB GI: abdominal pain, no nausea, vomiting, diarrhea, constipation, or white/black/ bloody stool : no dysuria, hematuria, incontinence, retention, bleeding, or discharge MSK: no neck/back pain, muscle weakness/pain, or joint swelling/pain NEURO: no headache, seizure, vertigo, numbness, tingling, or focal weakness PSYCH: no substance use, no behavior change SKIN: no jaundice, no rash ROS otherwise negative except as noted in HPI *Physical Exam - Vital Signs Last Vital Signs Temp Pulse Resp BP Pulse Ox 98.9 F 87 18 106/65 97 11/28/18 20:59 11/28/18 20:59 11/28/18 20:59 11/28/18 20:59 11/28/18 20:59 - Physical Exam Comments: 11/28/18 23:01 GENERAL: well-appearing, A/Ox4, no distress, answers questions appropriately, very pleasant, accompanied by HEENT: PERRLA, EOMI, moist mucous membranes NECK/BACK: no midline ttp, no spinal stepoff or deformity, no hematoma, full ROM , neck supple CARDIOVASCULAR: regular rate/rhythm, normal S1S2, no MGR, strong peripheral pulses, capillary refill <2 seconds, extremities wwp, no edema LUNGS/RESPIRATORY: no respiratory distress, CTAB GI/ABDOMEN: symmetric [id number], normoactive BS, soft, mild umbilical and RLQ ttp, negative Faulkner's sign, no midline pulsatile masses : no CVA tenderness EXTREMITIES: no muscle atrophy, no acute deformity SKIN: warm and dry, no pallor, no jaundice, no rash, no bruising, no skin breakdown, no cuts, no lesions NEUROLOGICAL: GCS 15, CN II-XII grossly intact, 5/5 strength proximally and distally, no facial droop ED Treatment Course - LABORATORY CBC & Chemistry Diagram: 11/28/18 22:30 11/28/18 22:30 - RADIOLOGY Radiology Studies Ordered: Category Date Time Status ABDOMEN & PELVIS CT WITH CONTR [CT] Stat CT Scan 11/28/18 22:53 Ordered Medical Decision Making - Medical Decision Making 11/28/18 23:03 Adult female Pt p/w RLQ pain. Initial Vital Signs Temp Pulse Resp BP Pulse Ox 98.9 F 87 18 106/65 97 11/28/18 20:59 11/28/18 20:59 11/28/18 20:59 11/28/18 20:59 11/28/18 20:59 Exam: As noted in Physical Exam section. DDX IBNLT: appendicitis,ovarian torsion, ovarian cyst, cholecystitis, pancreatitis, gastritis, PUD, UTI/pyelonephritis, renal colic, ectopic , PID, TOA, endometritis, salpingitis, oophoritis, Xpao-Mxtb-Rweeie syndrome ( if involving liver capsule ACS, AAA/AD, malignancy, hernia, diverticulitis wwo abscess or perforation, colitis, regional ileitis (Crohns disease), SBO, bowel ischemia, bowel perforation, constipation, musculoskeletal, primary dysmenorrhea , endometriosis, fibroids, etc. W/U ordered: Labs, CTAP with IV contrast TX ordered: IVF, Ofirmev Laboratory Tests 11/28/18 11/28/18 11/28/18 22:30 22:30 22:30 WBC 9.6 RBC 3.68 Hgb 10.5 L Hct 31.7 L MCV 86.3 MCH 28.5 MCHC 33.0 RDW 13.8 Plt Count 262 D MPV 9.1 Absolute Neuts (auto) 4.5 Neutrophils % 47.1 D Lymphocytes % 41.4 H D Monocytes % 9.4 Eosinophils % 1.8 D Basophils % 0.3 Nucleated RBC % 0 Sodium 144 Potassium 4.3 Chloride 110 H Carbon Dioxide 29 Anion Gap 5 L BUN 10.3 Creatinine 0.9 Est GFR (CKD-EPI)AfAm 87.02 Est GFR (CKD-EPI)NonAf 75.08 Random Glucose 88 Calcium 8.4 L Total Bilirubin 0.2 AST 33 ALT 29 Alkaline Phosphatase 85 Total Protein 6.6 Albumin 3.0 L Lipase 113 Urine Color Yellow Urine Appearance Clear Urine pH 5.5 Ur Specific Donie 1.014 Urine Protein Negative Urine Glucose (UA) Negative Urine Ketones Negative Urine Blood Negative Urine Nitrite Negative Urine Bilirubin Negative Urine Urobilinogen 0.2 Ur Leukocyte Esterase Negative Urine HCG, Qual 11/28/18 22:30 WBC RBC Hgb Hct MCV MCH MCHC RDW Plt Count MPV Absolute Neuts (auto) Neutrophils % Lymphocytes % Monocytes % Eosinophils % Basophils % Nucleated RBC % Sodium Potassium Chloride Carbon Dioxide Anion Gap BUN Creatinine Est GFR (CKD-EPI)AfAm Est GFR (CKD-EPI)NonAf Random Glucose Calcium Total Bilirubin AST ALT Alkaline Phosphatase Total Protein Albumin Lipase Urine Color Urine Appearance Urine pH Ur Specific Donie Urine Protein Urine Glucose (UA) Urine Ketones Urine Blood Urine Nitrite Urine Bilirubin Urine Urobilinogen Ur Leukocyte Esterase Urine HCG, Qual Negative 11/29/18 01:28 EXAM: CT ABDOMEN AND PELVIS WITH CONTRAST Dilated gallbladder containing sludge and/or hypodense stones in fundus and gallbladder neck. Small calcifications in cystic duct region could represent additional stones versus calcified periportal lymph node. Advise ultrasound to evaluate for acute cholecystitis. No bowel obstruction, colitis, free fluid or free air. Normal appendix. Unremarkable pancreas and kidneys. 3.2 cm hypodense fibroid in lower uterine segment versus prominent nabothian cyst in cervix. Small umbilical and right inguinal region hernias containing fat. At this time formal US is ordered and patient rushed to US before closing. 11/29/18 03:33 EXAM: ULTRASOUND ABDOMEN INCOMPLETE Mobile gallstones. Dilated gallbladder and normal wall thickness, 2.5 mm. No reported sonographic Faulkner's sign or pericholecystic fluid to suggest acute cholecystitis. Unremarkable right kidney and visualized aorta and pancreas. Borderline hepatomegaly. Top normal common duct diameter, 6 mm. The patient's physical exam has changed; there is now RUQ ttp. 11/29/18 03:59 The Pt is unsafe for discharge at this time. They require further hospital observation, workup, and treatment. Microblog sent to [facility] for admission. Blank Decision to Admit order is placed per ED protocol. Per the patient's exam, labs, and lack of findings of cholecystitis, we do not believe she requires overnight intervention. Consult order has been placed to GI collision worker Dr. Herrmann; will wait to call until 6:30am. Will call Surgery and place consult order at that time as well. Patient being kept NPO at this time, fluids running. *DC/Admit/Observation/Transfer Diagnosis at time of Disposition: Choledocholithiasis Abdominal pain Qualifiers: Abdominal location: unspecified location Qualified Code(s): R10.9 - Unspecified abdominal pain - Discharge Dispostion Condition at time of disposition: Guarded Decision to Admit order: Yes - Referrals Referrals: Hector Johnson MD [Primary Care Provider] - - Patient Instructions - Post Discharge Activity
[2018-11-28 23:02] LABS: PH,URINE 5.5 (5.0-8.0); URINE APPEARANCE CLEAR; URINE BILIRUBIN NEGATIVE (NEGATIVE); URINE COLOR YELLOW; URINE GLUCOSE (UA) NEGATIVE (NEGATIVE); URINE KETONE NEGATIVE (NEGATIVE); URINE LEUK ESTERASE NEGATIVE (NEGATIVE); URINE NITRITE NEGATIVE (NEGATIVE); URINE PROTEIN NEGATIVE (NEGATIVE); URINE UROBILINOGEN 0.2 mg/dL (0.2-1.0)
[2018-11-28] MEDS ORDERED: ACETAMINOPHEN 1000 MG/100 ML VIAL (NON FORMULARY) IVPB ONE (23:03)
[2018-11-28] MEDS ORDERED: SODIUM CHLORIDE 0.9% 500 ML INFUS.BAG IV ONE (23:03)
[2018-11-28] MEDS ORDERED: ACETAMINOPHEN INJECTION 100 ML IVPB ONE (23:21)
[2018-11-28 23:23] LABS: BILIRUBIN,TOTAL 0.2 mg/dL (0.2-1); BLOOD UREA NITROGEN 10.3 mg/dL (7-18); CALCIUM 8.4 mg/dL (8.5-10.1); CREATININE 0.9 mg/dL (0.55-1.3); POTASSIUM 4.3 mmol/L (3.5-5.1); TOT PROT 6.6 g/dl (6.4-8.2)
--- NOTE | 2018-11-28 23:47 | PDOC ---
Documentation entered by Helen Guzman SCRIBE, acting as scribe for Rommel Arredondo MD. Rommel Arredondo MD: This documentation has been prepared by the Thomas cordero Xhesika, SCRIBE, under my direction and personally reviewed by me in its entirety. I confirm that the documentation accurately reflects all work, treatment, procedures, and medical decision making performed by me. Attending Attestation - Resident Resident Name: Yahaira Cannon - ED Attending Attestation I have performed the following: I have examined & evaluated the patient, The case was reviewed & discussed with the resident, I agree w/resident's findings & plan, Exceptions are as noted - HPI HPI: 11/28/18 23:10 The patient is a 48 year old female, with a significant PMH of asthma, ovarian cyst, , and BTL who presents to the emergency department with RLQ pain and umbilical pain. The patient states she was seen here at [facility] on 11/25/18 for fever, abdominal pain and diarrhea. The patient states her fevers and diarrhea have since resolved, however, she is still endorsing persistent umbilical pain. The patient describes her umbilical pain as sharp, intermittent pain that resolves before recurring again. The patient states she had an ultrasound earlier this month at her PCP, Dr. Abbasi office which showed right ovarian cyst and fibroid within the uterus. The patient states her last normal bowel movement was today. The patient denies chest pain, shortness of breath, headache, focal weakness/ numbness and dizziness. Denies fever, chills, nausea, vomiting, diarrhea and constipation. Denies vaginal bleeding/discharge, dysuria, frequency, urgency and hematuria. Allergies: NKA PCP: Hector Stephenson - Physicial Exam PE: 11/28/18 23:15 agree with resident exam - Medical Decision Making 11/28/18 23:46 48yo F prsents to the ED with persistent umbilical pain since recent visit where she was diagnosed with gastroenteritis Pt also with RLQ pain DDx includes appendicitis vs ovarian cyst pain vs colitis vs pancreatitis vs enteritis Plan for labs, UA, CTAP, reassess
--- NOTE | 2018-11-29 04:38 | HP ---
Admitting History and Physical - Primary Care Physician PCP: Hector Johnson - Admission Chief Complaint: RLQ and Umbilical pain History of Present Illness: 48 year old female with h/o asthma, ovarian cyst arrived to the ER with umbilical and RLQ pain worsening for the past few days. Prior to this ED visit patient was here on 11/25/2018 for fever and diarrhea which per patient improved. Due to RLQ pain patient had TVUS on 11/03/18 as ordered by her PCP Dr. Gandhi, which showed a 2.5x3cm right ovarian cyst and fibroid within the uterus. Pain is sharp, does not radiate, no N/V noted. Denies having taken any medication for symptoms managment. Last BMs were today and normal. History Source: Patient Limitations to Obtaining History: No Limitations - Past Medical History Pulmonary: Yes: Asthma Reproductive: Yes: Other (Ovarian cyst) ...LMP: 10/04/13 - Past Surgical History Past Surgical History: Yes: - Smoking History Smoking history: Never smoked Have you smoked in the past 12 months: No Aproximately how many cigarettes per day: 0 - Alcohol/Substance Use Hx Alcohol Use: No History of Substance Use: reports: None - Social History ADL: Independent History of Recent Travel: No Home Medications - Allergies Allergies/Adverse Reactions: Allergies Allergy/AdvReac Type Severity Reaction Status Date / Time No Known Allergies Allergy Verified 11/28/18 21:01 - Home Medications Home Medications: Ambulatory Orders NK [No Known Home Medication] 10/04/17 Family Disease History - Family Disease History Family Disease History: Diabetes: Grandparent, Heart Disease: Father ( ) Review of Systems - Review of Systems Constitutional: reports: No Symptoms Eyes: reports: No Symptoms HENT: reports: No Symptoms Neck: reports: No Symptoms Cardiovascular: reports: No Symptoms Respiratory: reports: No Symptoms Gastrointestinal: reports: Abdominal Pain Genitourinary: reports: No Symptoms Physical Examination Vital Signs: Vital Signs Temperature 98.9 F 11/28/18 20:59 Pulse Rate 87 11/28/18 20:59 Respiratory Rate 18 11/28/18 20:59 Blood Pressure 106/65 11/28/18 20:59 O2 Sat by Pulse Oximetry (%) 97 11/28/18 20:59 Constitutional: Yes: Well Nourished, Mild Distress, Obese Eyes: Yes: WNL, Conjunctiva Clear, EOM Intact HENT: Yes: WNL, Atraumatic, Normocephalic Neck: Yes: WNL, Supple, Trachea Midline Cardiovascular: Yes: WNL, Regular Rate and Rhythm, S1, S2 Respiratory: Yes: WNL, Regular, CTA Bilaterally Gastrointestinal: Yes: Soft, Abdomen, Obese, Tenderness (mild RLQ tenderness, negative faulkner's sign) ...Rectal Exam: Yes: WNL Renal/: Yes: WNL Breast(s): Yes: WNL Musculoskeletal: Yes: WNL Extremities: Yes: WNL Edema: No Integumentary: Yes: WNL Neurological: Yes: WNL ...Motor Strength: WNL Psychiatric: Yes: WNL Labs: CBC, BMP 11/28/18 22:30 11/28/18 22:30 Problem List - Problems (1) Choledocholithiasis Assessment/Plan: EXAM: CT ABDOMEN AND PELVIS WITH CONTRAST Dilated gallbladder containing sludge and/or hypodense stones in fundus and gallbladder neck. Small calcifications in cystic duct region could represent additional stones versus calcified periportal lymph node. Advise ultrasound to evaluate for acute cholecystitis. No bowel obstruction, colitis, free fluid or free air. Normal appendix. Unremarkable pancreas and kidneys. 3.2 cm hypodense fibroid in lower uterine segment versus prominent nabothian cyst in cervix. Small umbilical and right inguinal region hernias containing fat. EXAM: ULTRASOUND ABDOMEN Mobile gallstones. Dilated gallbladder and normal wall thickness, 2.5 mm. No reported sonographic Faulkner's sign or pericholecystic fluid to suggest acute cholecystitis. Unremarkable right kidney and visualized aorta and pancreas. Borderline hepatomegaly. Top normal common duct diameter, 6 mm. NPO, IVF Pain management GI and Surgery consult ? MRCP Code(s): K80.50 - CALCULUS OF BILE DUCT W/O CHOLANGITIS OR CHOLECYST W/O OBST Assessment/Plan 48 year admitted with Abdomen pain secondary to Choledocholithiasis -NPO, IVF -Pain management -GI and Surgery consult -? MRCP Visit type - Emergency Visit Emergency Visit: Yes Care time: The patient presented to the Emergency Department on the above date and was hospitalized for further evaluation of their emergent condition. - New Patient This patient is new to me today: Yes Date on this admission: 11/29/18 - Critical Care Critical Care patient: No
[2018-11-29] MEDS: ACETAMINOPHEN 1000 MG/100 ML VIAL (NON FORMULARY) IVPB PRN (07:33)
[2018-11-29 08:44] LABS: ALBUMIN 2.8 g/dl (3.4-5.0); BILIRUBIN,TOTAL 0.3 mg/dL (0.2-1); BLOOD UREA NITROGEN 7.2 mg/dL (7-18); CALCIUM 8.2 mg/dL (8.5-10.1); CREATININE 0.8 mg/dL (0.55-1.3); TOT PROT 6.1 g/dl (6.4-8.2)
[2018-11-29 08:45] LABS: BASO % 0.4 % (0-2.0); EOS % 1.7 % (0-4.5); HEMATOCRIT 31.5 % (32.4-45.2); HEMOGLOBIN 10.1 GM/dL (10.7-15.3); MCH 27.9 pg (25.7-33.7); MCHC 32.2 g/dl (32.0-36.0); MEAN CELL VOLUME 86.4 fl (80-96); MONO % 9.2 % (3.8-10.2); NEUT % 46.7 % (42.8-82.8); PLATELET COUNT 264 K/MM3 (134-434); RBC 3.64 M/mm3 (3.60-5.2); RDW 13.6 % (11.6-15.6); WHITE BLOOD COUNT 8.6 K/mm3 (4.0-10.0)
[2018-11-29 08:48] VITALS: BMI 42.9
[2018-11-29] MEDS ORDERED: HYDROmorphone HCl 2 MG/ML VIAL IVPB PRN (09:50)
--- NOTE | 2018-11-29 11:35 | PN ---
Progress Note, Physician Chief Complaint: 48 yo F complaining of RUQ abdominal pain History of Present Illness: 48 yo F presenting to ED with abdominal pain and nausea. pt was in ED 2 d ago d/ c home with presumed ovarian cyst and gastroenteritis. returns to ED with worsening abdominal pain. - Current Medication List Current Medications: Active Medications Acetaminophen (Ofirmev Injection -) 1,000 mg IVPB Q6H PRN PRN Reason: MODERATE PAIN Last Admin: 11/29/18 07:33 Dose: 1,000 mg Hydromorphone HCl (Dilaudid Vial -) 2 mg IVPB Q6H PRN PRN Reason: PAIN LEVEL 6-10 - Objective Vital Signs: Vital Signs Temperature 98.1 F 11/29/18 10:00 Pulse Rate 63 11/29/18 10:00 Respiratory Rate 18 11/29/18 10:00 Blood Pressure 107/66 11/29/18 10:00 O2 Sat by Pulse Oximetry (%) 98 11/29/18 08:00 Constitutional: Yes: Obese Cardiovascular: Yes: Regular Rate and Rhythm Respiratory: Yes: CTA Bilaterally Gastrointestinal: Yes: Normal Bowel Sounds, Soft, Abdomen, Obese, Tenderness ( RUQ, periumbilical) Edema: No Labs: CBC, BMP 11/29/18 08:05 11/29/18 08:05 - ....Imaging Cat Scan: Report Reviewed (CT ABDOMEN AND PELVIS WITH CONTRAST Dilated gallbladder containing sludge and/or hypodense stones in fundus and gallbladder neck. Small calcifications in cystic duct region could represent additional stones versus calcified periportal lymph node. Advise ultrasound to evaluate for acute cholecystitis. No bowel obstruction, colitis, free fluid or free air. Normal appendix. Unremarkable pancreas and kidneys. 3.2 cm hypodense fibroid in lower uterine segment versus prominent nabothian cyst in cervix. Small umbilical and right inguinal region hernias containing fat.) Ultrasound: Report Reviewed (EXAM: ULTRASOUND ABDOMEN Mobile gallstones. Dilated gallbladder and normal wall thickness, 2.5 mm. No reported sonographic Faulkner's sign or pericholecystic fluid to suggest acute cholecystitis. Unremarkable right kidney and visualized aorta and pancreas. Borderline hepatomegaly. Top normal common duct diameter, 6 mm.) Problem List - Problems (1) Abdominal pain Assessment/Plan: Abdominal Pain most likely related to gall bladder disease based on CT and U/S finding. Lipase normal, pancreatitis unlikely. -continue NPO -MRCP to evaluate ducts -GI and Surgery consultations -monitor LFTs - IV Fluids -ID consult regarding antibiotics for cholecystits which in the absence of fever and white count is less likely Code(s): R10.9 - UNSPECIFIED ABDOMINAL PAIN Qualifiers: Abdominal location: unspecified location Qualified Code(s): R10.9 - Unspecified abdominal pain (2) Choledocholithiasis Assessment/Plan: As above. -await MRCP Code(s): K80.50 - CALCULUS OF BILE DUCT W/O CHOLANGITIS OR CHOLECYST W/O OBST (3) Anemia Assessment/Plan: -workup ordered including Iron studies, stool for occult blood, obtain previous levels -GI consult -will consider Heme if no GI source Code(s): D64.9 - ANEMIA, UNSPECIFIED
--- NOTE | 2018-11-29 11:55 | CON.GI ---
Consult Consult Specialty:: GI: For Dr. Lema who resumes care Saturday, 12/01 Referred by:: Dr. Johnson Reason for Consultation:: Abdominal pain - History of Present Illness Chief Complaint: Abdominal pain History of Present Illness: 48F with complaints of diffuse (R>L) sided abdominal pain since this past saturday. She states that they pain waxed and waned thorughout the days, was sharp and diffuse, becoming more right sided and intense on Saturday prompting ER evaluation. She also had diarrhea (watery BM's) from saturday until saturday. She had a fever in the ER, was told of a virus and discharged home. She returned to the ED when the pain persisted. Diarrhea has improved. Pain persists . She underwent CT scan and US in the ED that have not been read officilly as of yet. Preliminary CT scan report revealed gallstones, Revealed sludge and gallstones and questiond a stone in the cystic duct region vs. extrinsic periportal calcified lymph node. US revealed hepatomegaly and gallstones. She denies any recent antibiotic use, travel, change in dietary habits,. She states that she has been anemic intermittently and no longer menstruates. She takes iron and has never had an upper endoscopy or colonoscopy. There is no family history of colorectal cancer or other GI malignancy. - History Source History Provided By: Patient, Medical Record - Past Medical History Pulmonary: Yes: Asthma Hepatobiliary: Yes: Cholelithiasis ...LMP: 10/04/13 ...: No Heme/Onc: Yes: Anemia - Past Surgical History Past Surgical History: Yes: (x1) - Alcohol/Substance Use Hx Alcohol Use: No History of Substance Use: reports: None - Smoking History Smoking history: Never smoked Have you smoked in the past 12 months: No Aproximately how many cigarettes per day: 0 - Social History Usual Living Arrangement: With Spouse () ADL: Independent Occupation: Not working Place of : Other ([employer]) Came to [place]year): 89 History of Recent Travel: No Home Medications - Allergies Allergies/Adverse Reactions: Allergies Allergy/AdvReac Type Severity Reaction Status Date / Time No Known Allergies Allergy Verified 11/28/18 21:01 - Home Medications Home Medications: Ambulatory Orders NK [No Known Home Medication] 10/04/17 Family Disease History - Family Disease History Family Disease History: Diabetes: Grandparent, Other: Father (: 72: CVA), Mother (Alive: healthy), Brother (3, healthy), Sister (2, healthy), Son (2, healthy), Daughter (2, healthy) Other Family History: No family history of colorectal cancer or other GI malignancy Review of Systems - Review of Systems Constitutional: reports: Chills, Fever. denies: Unintentional Wgt. Loss Cardiovascular: denies: Chest Pain Respiratory: denies: Cough, SOB Gastrointestinal: reports: Abdominal Pain, Diarrhea (resolved), Nausea. denies : Rectal Bleeding, Vomiting Physical Exam-GI Vital Signs: Vital Signs Temperature 98.1 F 11/29/18 10:00 Pulse Rate 63 11/29/18 10:00 Respiratory Rate 18 11/29/18 10:00 Blood Pressure 107/66 11/29/18 10:00 O2 Sat by Pulse Oximetry (%) 98 11/29/18 08:00 Constitutional: Yes: Calm Eyes: No: Sclera Icterus Cardiovascular: Yes: Regular Rate and Rhythm. No: Murmur Respiratory: Yes: CTA Bilaterally Gastrointestinal Inspection: Yes: Scars (vertical pelvic surgical scar). No: Distention ...Auscultate: Yes: Normoactive Bowel Sounds ...Palpate: Yes: Hepatomegaly, Soft, Tenderness (TTP in both RUQ and RLQ, more pronounced in RUQ with + Gaming's sign). No: Splenomegaly ...Percussion: No: Tympanitic Edema: No (No LE edema) Neurological: Yes: Alert, Oriented Labs: CBC, BMP 11/29/18 08:05 11/29/18 08:05 Hepatic Panel Total Bilirubin 0.3 mg/dL (0.2-1) 11/29/18 08:05 AST 23 U/L (15-37) 11/29/18 08:05 ALT 26 U/L (13-61) 11/29/18 08:05 Alkaline Phosphatase 66 U/L (45-117) 11/29/18 08:05 Albumin 2.8 g/dl (3.4-5.0) L 11/29/18 08:05 Problem List - Problems (1) Abdominal pain Assessment/Plan: Persistent right sided abdominal pain. Had diarrhea accompanying this but that has since resolved. tenderness most pronounced in the RUQ and gaming's sign was elicited. Pain also seemes to be persistent now when it was previously waxing and waning. ? biliary colic previously, now w/ cholecystitis. ? resolving gastroenteritis. Advise: NPO IV hydration MRCP Surgical evaluation IV Abx for possible cholecystitis Follow-up official abdominal imaging reads Code(s): R10.9 - UNSPECIFIED ABDOMINAL PAIN Qualifiers: Abdominal location: unspecified location Qualified Code(s): R10.9 - Unspecified abdominal pain
--- NOTE | 2018-11-29 13:12 | CON.ID ---
Consult Consult Specialty:: infectious disease Referred by:: dr olivia Reason for Consultation:: possible cholycystitis - History of Present Illness Chief Complaint: abdominal pain History of Present Illness: 48 yo female seen in the ER on 11/25 with water diarrhea and abdominal pain- sent home, resolved abdominal pain RUQ began and persisted so she came to the ED no fevers or chills no nausea or vomiting no travel no sick contacts imaging in ED ct scan and sono -gallstones, cannot exclude stone in CBD no sick contacts, no pets lives with and children no recent antibiotics - History Source History Provided By: Patient, Medical Record - Past Medical History Pulmonary: Yes: Asthma Hepatobiliary: Yes: Cholelithiasis ...LMP: 10/04/13 ...: No - Past Surgical History Past Surgical History: Yes: (x1) - Alcohol/Substance Use Hx Alcohol Use: No History of Substance Use: reports: None - Smoking History Smoking history: Never smoked Have you smoked in the past 12 months: No Aproximately how many cigarettes per day: 0 - Social History Usual Living Arrangement: With Spouse () ADL: Independent Occupation: Not working Place of : Other ([facility]) History of Recent Travel: No Home Medications - Allergies Allergies/Adverse Reactions: Allergies Allergy/AdvReac Type Severity Reaction Status Date / Time No Known Allergies Allergy Verified 11/28/18 21:01 - Home Medications Home Medications: Ambulatory Orders NK [No Known Home Medication] 10/04/17 Family Disease History - Family Disease History Family Disease History: Diabetes: Grandparent, Other: Father (: 72: CVA), Mother (Alive: healthy), Brother (3, healthy), Sister (2, healthy), Son (2, healthy), Daughter (2, healthy) Other Family History: No family history of colorectal cancer or other GI malignancy Review of Systems - Review of Systems Constitutional: reports: No Symptoms Eyes: reports: No Symptoms HENT: reports: No Symptoms. denies: Difficult Swallowing Neck: reports: No Symptoms Cardiovascular: reports: No Symptoms. denies: Chest Pain, Edema, Shortness of Breath Respiratory: denies: Cough Gastrointestinal: reports: Abdominal Pain. denies: Constipation, Diarrhea, Nausea, Rectal Bleeding, Vomiting, Vomiting Blood Genitourinary: reports: No Symptoms Musculoskeletal: reports: No Symptoms Integumentary: reports: No Symptoms Neurological: reports: No Symptoms Physical Exam Vital Signs: Vital Signs Temperature 98.1 F 11/29/18 10:00 Pulse Rate 63 11/29/18 10:00 Respiratory Rate 18 11/29/18 10:00 Blood Pressure 107/66 11/29/18 10:00 O2 Sat by Pulse Oximetry (%) 98 11/29/18 08:00 Constitutional: Yes: Well Nourished, No Distress, Calm Eyes: Yes: Conjunctiva Clear, EOM Intact HENT: Yes: Atraumatic, Normocephalic Neck: Yes: Trachea Midline Cardiovascular: Yes: Regular Rate and Rhythm Respiratory: Yes: Regular, CTA Bilaterally Gastrointestinal: Yes: Normal Bowel Sounds, Other (RUQ tenderness to palpation ( just got pain meds)) ...Rectal Exam: Yes: Deferred Renal/: No: CVA Tenderness - Left, CVA Tenderness - Right Extremities: Yes: WNL Edema: No Labs: CBC, BMP 11/29/18 08:05 11/29/18 08:05 Imaging - Results Cat Scan: Report Reviewed Ultrasound: Report Reviewed Problem List - Problems (1) Abdominal pain Code(s): R10.9 - UNSPECIFIED ABDOMINAL PAIN Qualifiers: Abdominal location: unspecified location Qualified Code(s): R10.9 - Unspecified abdominal pain (2) Choledocholithiasis Code(s): K80.50 - CALCULUS OF BILE DUCT W/O CHOLANGITIS OR CHOLECYST W/O OBST (3) Cholecystitis Code(s): K81.9 - CHOLECYSTITIS, UNSPECIFIED Assessment/Plan abdominal pain cannot r/o cholycystitis, choledocholithiasis d/w GI will obtain blood cultures and start antibiotics for biliary coverage until further imaging is done
[2018-11-29] MEDS ORDERED: cefTRIAXone SODIUM 1 GM VIAL ONE (14:06)
[2018-11-29] MEDS ORDERED: DEXTROSE 5%-WATER - 50 ML IVPB ONE (14:06)
[2018-11-29] MEDS: CEFTRIAXONE 1 GM in DEXTROSE 5%-WATER - 50 ML IVPB SCH (14:11)
[2018-11-29] MEDS: SODIUM CHLORIDE 1,000 ML IV SCH (23:29)
[2018-11-30 07:27] LABS: HEMOGLOBIN 11.1 GM/dL (10.7-15.3); MCH 28.3 pg (25.7-33.7); MCHC 32.7 g/dl (32.0-36.0); MEAN CELL VOLUME 86.3 fl (80-96); MEAN PLT VOLUME 8.8 fl (7.5-11.1); RBC 3.94 M/mm3 (3.60-5.2); RDW 13.6 % (11.6-15.6); WHITE BLOOD COUNT 10.1 K/mm3 (4.0-10.0)
[2018-11-30 07:55] LABS: BILIRUBIN,TOTAL 0.3 mg/dL (0.2-1); BLOOD UREA NITROGEN 8.4 mg/dL (7-18); CALCIUM 8.5 mg/dL (8.5-10.1); CREATININE 0.7 mg/dL (0.55-1.3); POTASSIUM 4.2 mmol/L (3.5-5.1); TOT PROT 6.6 g/dl (6.4-8.2)
[2018-11-30 08:35] LABS: PLATELET COUNT 298 K/MM3 (134-434)
[2018-11-30] MEDS ORDERED: cefTRIAXone SODIUM 1 GM VIAL ONE (09:11)
[2018-11-30] MEDS ORDERED: DEXTROSE 5%-WATER - 50 ML IVPB ONE (09:11)
[2018-11-30] MEDS: CEFTRIAXONE 1 GM in DEXTROSE 5%-WATER - 50 ML IVPB SCH (10:36)
--- NOTE | 2018-11-30 11:33 | PN ---
Progress Note, Physician - Current Medication List Current Medications: Active Medications Acetaminophen (Ofirmev Injection -) 1,000 mg IVPB Q6H PRN PRN Reason: MODERATE PAIN Last Admin: 11/29/18 07:33 Dose: 1,000 mg Hydromorphone HCl (Dilaudid Vial -) 2 mg IVPB Q6H PRN PRN Reason: PAIN LEVEL 6-10 Ceftriaxone Sodium 1 gm/ (Dextrose) 50 mls @ 200 mls/hr IVPB DAILY CARLOS; Protocol Last Admin: 11/30/18 10:36 Dose: 200 mls/hr Metronidazole (Flagyl 500mg Premixed Ivpb -) 500 mg in 100 mls @ 100 mls/hr IVPB Q8H-IV CARLOS Last Admin: 11/30/18 09:14 Dose: 100 mls/hr Sodium Chloride (Normal Saline -) 1,000 mls @ 75 mls/hr IV ASDIR CARLOS Last Admin: 11/29/18 23:29 Dose: 75 mls/hr - Objective Vital Signs: Vital Signs Temperature 98.6 F 11/30/18 10:00 Pulse Rate 70 11/30/18 10:00 Respiratory Rate 18 11/30/18 10:00 Blood Pressure 101/61 11/30/18 10:00 O2 Sat by Pulse Oximetry (%) 97 11/30/18 10:00 Cardiovascular: Yes: Regular Rate and Rhythm Respiratory: Yes: Regular, CTA Bilaterally Gastrointestinal: Yes: Normal Bowel Sounds, Soft, Tenderness (less) Labs: CBC, BMP 11/30/18 07:08 11/30/18 07:08 Problem List - Problems (1) Abdominal pain Assessment/Plan: Abdominal Pain most likely related to gall bladder disease based on CT and U/S finding. Lipase normal, pancreatitis unlikely. -continue NPO -MRCP to evaluate ducts -GI and Surgery consultations -monitor LFTs - IV Fluids -ID consult regarding antibiotics for cholecystits which in the absence of fever and white count is less likely Code(s): R10.9 - UNSPECIFIED ABDOMINAL PAIN Qualifiers: Abdominal location: unspecified location Qualified Code(s): R10.9 - Unspecified abdominal pain (2) Choledocholithiasis Assessment/Plan: As above. -await MRCP Code(s): K80.50 - CALCULUS OF BILE DUCT W/O CHOLANGITIS OR CHOLECYST W/O OBST (3) Anemia Assessment/Plan: -workup ordered including Iron studies, stool for occult blood, obtain previous levels -GI consult -will consider Heme if no GI source Code(s): D64.9 - ANEMIA, UNSPECIFIED
--- NOTE | 2018-11-30 12:24 | CONSULT ---
- Consultation REQUESTING PROVIDER: Andrei DUTTON CONSULT REQUEST: We have been asked to surgically evaluate this patient for symptomatic biliary tract disease. PCP:Hector Johnson HISTORY OF PRESENT ILLNESS: FLORENTINO who is a 48 y/o A/A female who presented to the [facility] ED 11/25/18 w/abdominal pain and was txed and released and returned w/nausea and vomiting and RUQ sharp abdominal pain over 6 hours in duration since inception; pain radiated to her back and right shoulder; a w/u was done which revealed cholelithiasis; she responded to conservative tx. but still has some mild RUQ pain; she denies dark urine and or light stools or any other GI/ c/o; she has a h/o C-S and BTL. She states she had known she had gallstones on previous imaging for other reasons and never had symptoms before. PMHx: none PSHx: as above. Home Medications Medication Instructions Recorded NK [No Known Home Medication] 10/04/17 Allergies Allergy/AdvReac Type Severity Reaction Status Date / Time No Known Allergies Allergy Verified 11/28/18 21:01 REVIEW OF SYSTEMS: CONSTITUTIONAL: Absent: fever, chills, diaphoresis, generalized weakness, malaise, loss of appetite, weight change CARDIOVASCULAR: Absent: chest pain, syncope, palpitations, irregular heart rate, lightheadedness , peripheral edema RESPIRATORY: Absent: cough, shortness of breath, dyspnea with exertion, wheezing, stridor, hemoptysis GASTROINTESTINAL: Present: abdominal pain, abdominal distension, nausea, vomiting, diarrhea, Absent: constipation, melena, hematochezia GENITOURINARY: Absent: dysuria, frequency, urgency, hesitancy, hematuria, flank pain, genital pain MUSCULOSKELETAL: Absent: myalgia, arthralgia, joint swelling, back pain, neck pain SKIN: Absent: rash, itching, pallor HEMATOLOGIC/IMMUNOLOGIC: Absent: easy bleeding, easy bruising, lymphadenopathy NEUROLOGIC: Absent: headache, focal weakness, paresthesias, dizziness, unsteady gait, seizure, mental status changes, bladder or bowel incontinence PSYCHIATRIC: Absent: anxiety, depression, suicidal or homicidal ideation, hallucinations. PHYSICAL EXAM: GENERAL: Awake, alert, and fully oriented, in no acute distress. HEAD: Normal with no signs of trauma. EYES: sclera anicteric, conjunctiva clear. NECK: Normal ROM, supple without lymphadenopathy, JVD, or masses. ABDOMEN: Soft, minimal RUQ tenderness, not distended, normoactive bowel sounds, no guarding, no rebound, no masses. No organomegaly. MUSCULOSKELETAL: Normal ROM at all joints. No bony deformities or tenderness. No CVA tenderness. UPPER EXTREMITIES: 2+ pulses, warm, well-perfused. No cyanosis. Cap refill <2 seconds. No peripheral edema. LOWER EXTREMITIES: 2+ pulses, warm, well-perfused. No calf tenderness. No peripheral edema. NEUROLOGICAL: Normal speech, gait not observed. PSYCH: Cooperative. Good eye contact. Appropriate mood and affect. SKIN: Warm, dry, normal turgor, no rashes or lesions noted. Vital Signs Temperature 98.6 F 11/30/18 10:00 Pulse Rate 70 11/30/18 10:00 Respiratory Rate 18 11/30/18 10:00 Blood Pressure 101/61 11/30/18 10:00 O2 Sat by Pulse Oximetry (%) 97 11/30/18 10:00 Lab Results WBC 10.1 K/mm3 (4.0-10.0) H 11/30/18 07:08 RBC 3.94 M/mm3 (3.60-5.2) 11/30/18 07:08 Hgb 11.1 GM/dL (10.7-15.3) 11/30/18 07:08 Hct 34.0 % (32.4-45.2) 11/30/18 07:08 MCV 86.3 fl (80-96) 11/30/18 07:08 MCHC 32.7 g/dl (32.0-36.0) 11/30/18 07:08 RDW 13.6 % (11.6-15.6) 11/30/18 07:08 Plt Count 298 K/MM3 (134-434) 11/30/18 07:08 Sodium 141 mmol/L (136-145) 11/30/18 07:08 Potassium 4.2 mmol/L (3.5-5.1) 11/30/18 07:08 Chloride 108 mmol/L (98-107) H 11/30/18 07:08 Carbon Dioxide 28 mmol/L (21-32) 11/30/18 07:08 Anion Gap 5 MMOL/L (8-16) L 11/30/18 07:08 BUN 8.4 mg/dL (7-18) 11/30/18 07:08 Creatinine 0.7 mg/dL (0.55-1.3) 11/30/18 07:08 Random Glucose 79 mg/dL (74-106) 11/30/18 07:08 Calcium 8.5 mg/dL (8.5-10.1) 11/30/18 07:08 Imaging w/u to date reviewed; MRCP results pending. IMP:symptomatic cholelithiasi/biliary colic; possible acute cholecystitis PLAN: Agree w/tx. plan to date; d/w the patient lap rashel possible open 12/01/18 ; r/b/t/a's d/w her as well and she wishes to proceed. Will give a trial of clear liquids and NPO after MN. Hernan Post MD FACS
[2018-11-30] MEDS: SODIUM CHLORIDE 1,000 ML IV SCH (19:59)
--- NOTE | 2018-12-01 00:30 | EKG ---
Test Reason : Blood Pressure : / mmHG Vent. Rate : 076 BPM Atrial Rate : 076 BPM P-R Int : 178 ms QRS Dur : 078 ms QT Int : 390 ms P-R-T Axes : 065 023 010 degrees QTc Int : 438 ms NORMAL SINUS RHYTHM NORMAL ECG WHEN COMPARED WITH ECG OF 26-MAR-2017 12:04, NO SIGNIFICANT CHANGE WAS FOUND Confirmed by MD López Edward ([id number]) on 12/01/2018 12:29:50 AM Referred By: Confirmed By:Yong López MD
--- NOTE | 2018-12-01 08:09 | PN.GI ---
GI Progress Note Subjective: Patient continues with RUQ pain. SHe describes the pain as non-radiating, 6/10 , and sharp. Denies nausea, vomiting, diarrhea, constipation, rectal bleeding, melena. Abdominal CT scan showed abnormal gallbladder containing gallstones, cannot exclude gallstones within CBD. MRCP done and shows no evidence of choledocolithiasis. Labs shows mild leukocytosis 10.1. - Objective Vital Signs: Vital Signs Temperature 98.5 F 12/01/18 07:00 Pulse Rate 71 12/01/18 07:00 Respiratory Rate 18 12/01/18 07:00 Blood Pressure 99/68 12/01/18 07:00 O2 Sat by Pulse Oximetry (%) 98 11/30/18 21:00 Constitutional: No Distress, Calm Eyes: Yes: Conjunctiva Clear HENT: Yes: Atraumatic Cardiovascular: Yes: Regular Rate and Rhythm Respiratory: Yes: Regular, CTA Bilaterally Gastrointestinal Inspection: Yes: WNL. No: Ascites, Distention, Hernia, Scars, Other ...Auscultate: Yes: Hypoactive Bowel Sounds. No: Normoactive Bowel Sounds, Hyperactive Bowel Sounds, No Bowel Sounds, Other ...Palpate: Yes: Soft, Tenderness (RUQ, RLQ), Tenderness, Epigastium ...Percussion: Yes: Tympanitic. No: Dullness, Fluid Wave, Other Neurological: Yes: Alert, Oriented Psychiatric: Yes: Alert, Oriented Labs: CBC, BMP 11/30/18 07:08 11/30/18 07:08 Active Medications Generic Name Dose Route Start Last Admin Trade Name Christel PRN Reason Stop Dose Admin Acetaminophen 1,000 mg 11/29/18 07:02 11/29/18 07:33 Ofirmev Injection - IVPB 1,000 mg Q6H PRN Administration MODERATE PAIN Hydromorphone HCl 2 mg 11/29/18 09:50 Dilaudid Vial - IVPB Q6H PRN PAIN LEVEL 6-10 Ceftriaxone Sodium 1 gm/ 50 mls @ 200 mls/hr 11/29/18 13:15 11/30/18 10:36 Dextrose IVPB 200 mls/hr DAILY CARLOS Administration Protocol Metronidazole 500 mg in 100 mls @ 100 mls/hr 11/29/18 13:15 12/01/18 01:59 Flagyl 500mg Premixed Ivpb - IVPB 100 mls/hr Q8H-IV CARLOS Administration Sodium Chloride 1,000 mls @ 75 mls/hr 11/29/18 19:00 11/30/18 19:59 Normal Saline - IV 75 mls/hr ASDIR CARLOS Administration Problem List - Problems (1) Abdominal pain Assessment/Plan: -most likely secondary to biliary colic -MRCP done shows no evidence of choledocolithiasis -NPO -IV hydration -pain control -stool cultures pending Code(s): R10.9 - UNSPECIFIED ABDOMINAL PAIN Qualifiers: Abdominal location: unspecified location Qualified Code(s): R10.9 - Unspecified abdominal pain (2) Choledocholithiasis Assessment/Plan: -Surgery on board, recommendations appreciated -patient is NPO for possible lap rashel on 12/01/18 _MRCP shows no evidence of choledoclithiasis Code(s): K80.50 - CALCULUS OF BILE DUCT W/O CHOLANGITIS OR CHOLECYST W/O OBST (3) Biliary colic Assessment/Plan: -IV hydration -Ceftriaxone and Flagyl -NPO Code(s): K80.50 - CALCULUS OF BILE DUCT W/O CHOLANGITIS OR CHOLECYST W/O OBST
[2018-12-01] MEDS ORDERED: cefTRIAXone SODIUM 1 GM VIAL ONE (09:45)
[2018-12-01] MEDS ORDERED: DEXTROSE 5%-WATER - 50 ML IVPB ONE (09:45)
[2018-12-01] MEDS: CEFTRIAXONE 1 GM in DEXTROSE 5%-WATER - 50 ML IVPB SCH (10:05)
[2018-12-01] MEDS: SODIUM CHLORIDE 1,000 ML IV SCH (10:06)
[2018-12-01] MEDS ORDERED: ROCURONIUM BROMIDE 50 MG/5 ML SYRINGE ONE (11:26)
[2018-12-01] MEDS ORDERED: MIDAZOLAM HCL 2 MG/2 ML SINGLE DOSE VIAL ONE (11:26)
[2018-12-01] MEDS ORDERED: fentaNYL CITRATE 250 MCG/5 ML VIAL ONE (11:26)
[2018-12-01] MEDS ORDERED: PROPOFOL 20 ML ONE ×2 (11:26)
[2018-12-01] MEDS ORDERED: LIDOCAINE HCL/PF 2% SDV 5ML VIAL ONE (11:26)
[2018-12-01] MEDS ORDERED: DEXAMETHASONE SOD PHOSPHATE 4 MG/1 ML VIAL ONE (12:53)
[2018-12-01] MEDS ORDERED: GLYCOPYRROLATE 0.2 MG/1 ML VIAL ONE (13:12)
[2018-12-01] MEDS ORDERED: NEOSTIGMINE METHYLSULFATE 0.5 MG/ML - 10 ML MDV ONE (13:12)
--- NOTE | 2018-12-01 13:18 | PN ---
Progress Note, Physician Chief Complaint: Abdominal pain - Current Medication List Current Medications: Active Medications Acetaminophen (Ofirmev Injection -) 1,000 mg IVPB Q6H PRN PRN Reason: MODERATE PAIN Last Admin: 11/29/18 07:33 Dose: 1,000 mg Hydromorphone HCl (Dilaudid Vial -) 2 mg IVPB Q6H PRN PRN Reason: PAIN LEVEL 6-10 Ceftriaxone Sodium 1 gm/ (Dextrose) 50 mls @ 200 mls/hr IVPB DAILY CARLOS; Protocol Last Admin: 12/01/18 10:05 Dose: 200 mls/hr Metronidazole (Flagyl 500mg Premixed Ivpb -) 500 mg in 100 mls @ 100 mls/hr IVPB Q8H-IV CARLOS Last Admin: 12/01/18 10:06 Dose: 100 mls/hr Sodium Chloride (Normal Saline -) 1,000 mls @ 75 mls/hr IV ASDIR CARLOS Last Admin: 12/01/18 10:06 Dose: 75 mls/hr - Objective Vital Signs: Vital Signs Temperature 98.2 F 12/01/18 08:00 Pulse Rate 66 12/01/18 08:00 Respiratory Rate 18 12/01/18 09:00 Blood Pressure 103/63 12/01/18 08:00 O2 Sat by Pulse Oximetry (%) 98 12/01/18 09:00 Constitutional: Yes: Well Nourished, No Distress, Calm, Obese Cardiovascular: Yes: Regular Rate and Rhythm Respiratory: Yes: Regular Gastrointestinal: Yes: Normal Bowel Sounds, Soft, Abdomen, Obese Labs: CBC, BMP 11/30/18 07:08 11/30/18 07:08
[2018-12-01] MEDS ORDERED: BUPIVACAINE HCL/PF (5 MG/ML) 30 ML VIAL IJ ONE (13:29)
[2018-12-01] MEDS ORDERED: oxyCODONE HCL 5 MG TABLET PO PRN (14:03)
[2018-12-01] MEDS ORDERED: IBUPROFEN 800 MG/8 ML IJ IVPB PRN ×2 (14:03→15:55)
[2018-12-01] MEDS ORDERED: ONDANSETRON 4 MG/2 ML VIAL IVPUSH PRN ×2 (14:03→15:55)
[2018-12-01] MEDS ORDERED: ACETAMINOPHEN INJECTION 100 ML IVPB ONE (14:11)
[2018-12-01] MEDS: ACETAMINOPHEN 1000 MG/100 ML VIAL (NON FORMULARY) IVPB PRN (14:20)
[2018-12-01] MEDS ORDERED: IBUPROFEN 800 MG/8 ML IJ IVPB ONE (14:29)
--- NOTE | 2018-12-01 15:05 | OP ---
Operative Note - Note: Operative Date: 12/01/18 Pre-Operative Diagnosis: Biliary colic Operation: Laparoscopic cholecystectomy Findings: hydrops of gallbladder Post-Operative Diagnosis: Same as Pre-op Surgeon: Hernan Post Basket Machine Operator: Gokul Rosenberg Anesthesiologist/WELDING PANTOGRAPH OPERATOR: Olivia Lin Anesthesia: General, Local Specimens Removed: Gallbladder with gallstones Estimated Blood Loss (mls): 20 (ml) Fluid Volume Replaced (mls): 850 (ml LR ) Operative Report Dictated: Yes
--- NOTE | 2018-12-01 15:10 | SURG ---
Surgery [employer] P8 Developer Note [employer] P8 Developer: Gokul Rosenberg PA-C (Suzy) Date of Service: 12/01/18 Diagnosis: Biliary colic Procedure: Laparoscopic cholecystectomy I was present for the entirety of the operative procedure. For further detail, please refer to operative report. Visit type - Case Type Case Type: Scheduled - Emergency Emergency Visit: Yes ED Registration Date: 11/29/18 Care time: The patient presented to the Emergency Department on the above date and was hospitalized for further evaluation of their emergent condition. - New patient This patient is new to me today: Yes Date on this admission: 12/01/18 - Critical Care Critical Care patient: No
[2018-12-01] MEDS ORDERED: SODIUM CHLORIDE 1,000 ML IV SCH (15:55)
[2018-12-01] MEDS ORDERED: ACETAMINOPHEN 1000 MG/100 ML VIAL (NON FORMULARY) IVPB PRN (15:55)
[2018-12-01] MEDS ORDERED: HYDROmorphone HCl 2 MG/ML VIAL IVPB PRN (15:55)
--- NOTE | 2018-12-01 20:57 | OP ---
DATE OF OPERATION: 12/01/2018 PREOPERATIVE DIAGNOSES: Biliary colic and cholelithiasis. POSTOPERATIVE DIAGNOSES: Biliary colic, cholelithiasis, and hydrops of the gallbladder. PROCEDURE: Laparoscopic cholecystectomy. SURGEON: Hernan Post MD YARN DUMPER: INDIRA Ray ANESTHESIA: General. OPERATIVE FINDINGS: There was cholelithiasis and hydrops of the gallbladder. There were adhesions from a previous . The rest of the findings were unremarkable. DESCRIPTION OF PROCEDURE: The patient was placed on the operating room table in supine position. After the induction of general anesthesia, the patient's abdomen was prepped with ChloraPrep and draped in sterile fashion. Time-out was taken and then pneumoperitoneum established above the umbilicus using a Veress needle. Once 15 mm of intra-abdominal pressure was obtained, a 5-mm port was placed at the umbilicus. Additional lateral 5-mm ports and a subxiphoid 12-mm port were placed and laparoscopy carried out, and the previously noted findings were observed. The gallbladder was placed on cephalad and lateral traction, and dissection was begun at the neck of the gallbladder where the peritoneum was opened medially and laterally using blunt and sharp dissection and electrocautery. Dissection continued in the triangle of Calot where the cystic duct was identified coursing from the neck of the gallbladder distally to the common bile duct. It was dissected proximally and distally for length. Similarly, the artery was similarly identified and dissected. A critical view of safety was taken, and then the cystic duct divided proximally and distally using Endo Annabelle after it was clipped twice proximally and distally with large hemoclips. The artery was similarly clipped and divided. Hemostasis was checked for and noted to be good and then the gallbladder was removed from the liver bed in a retrograde fashion using electrocautery. Prior to removal from the edge of the liver, hemostasis was again verified and then the gallbladder removed from the edge of the liver, placed in an EndoCatch, and brought out through the subxiphoid port. Pneumoperitoneum was reestablished, hemostasis verified again, and then the 5-mm lateral and subxiphoid ports were removed under laparoscopic vision without evidence of bleeding from the port sites. The umbilical port was removed and the pneumoperitoneum evacuated. All port sites were infiltrated with 0.5% Marcaine and the skin edges closed with 4-0 Biosyn in a subcuticular and continuous fashion. Steri-Strips and Band-Aid dressings were placed and the procedure terminated at this point and the patient aroused from general anesthesia and transferred to the post anesthesia care unit in stable condition awake and alert. ESTIMATED BLOOD LOSS: 20 mL. REPLACEMENTS: Crystalloid. DRAINS: None. SPECIMENS: Gallbladder and contents to pathology. I, Hernan Post, was physically present in the operating room from the time the patient was placed on the operating room table until she was transferred to the post anesthesia care unit in my accompaniment. MD BILL Pritchett/[id number] MTDD
[2018-12-01] MEDS: oxyCODONE HCL 5 MG TABLET PO PRN (21:37)
[2018-12-02 07:11] VITALS: TEMP 98.6
--- NOTE | 2018-12-02 07:26 | PN.GI ---
GI Progress Note Subjective: Patient is POD #1 laparoscopic cholecystectomy. She denies nausea, vomiting, abdominal pain. Tolerating diet. Denies diarrhea, constipation, rectal bleeding, melena. - Objective Vital Signs: Vital Signs Temperature 98.6 F 12/02/18 06:00 Pulse Rate 66 12/02/18 06:00 Respiratory Rate 20 12/02/18 06:00 Blood Pressure 102/56 L 12/02/18 06:00 O2 Sat by Pulse Oximetry (%) 97 12/01/18 21:00 Constitutional: No Distress, Calm, Obese Eyes: Yes: Conjunctiva Clear HENT: Yes: Atraumatic Cardiovascular: Yes: Regular Rate and Rhythm Respiratory: Yes: Regular, CTA Bilaterally Gastrointestinal Inspection: Yes: WNL, Other (laparoscopic sites x 5). No: Ascites, Distention, Hernia, Scars ...Auscultate: Yes: Normoactive Bowel Sounds. No: Hyperactive Bowel Sounds, Hypoactive Bowel Sounds, No Bowel Sounds, Other ...Palpate: Yes: Soft, Tenderness (RUQ, mild). No: Firm/Rigid, Guarding, Hepatomegaly, Mass, Pulsatile Mass, Splenomegaly, Tenderness, Epigastium, Tenderness, Rebound, Other ...Percussion: Yes: Tympanitic. No: Dullness, Fluid Wave, Other Neurological: Yes: Alert, Oriented Psychiatric: Yes: Alert, Oriented Labs: CBC, BMP 11/30/18 07:08 11/30/18 07:08 Active Medications Generic Name Dose Route Start Last Admin Trade Name Freq PRN Reason Stop Dose Admin Acetaminophen 1,000 mg 12/01/18 15:55 Ofirmev Injection - IVPB Q6H PRN MODERATE PAIN Hydromorphone HCl 2 mg 12/01/18 15:55 Dilaudid Vial - IVPB Q6H PRN PAIN LEVEL 6-10 Sodium Chloride 1,000 mls @ 75 mls/hr 12/01/18 15:55 12/01/18 16:10 Normal Saline - IV 75 mls/hr ASDIR CARLOS Administration Ibuprofen 800 mg 12/01/18 15:55 Caldolor Injection - IVPB Q6H PRN Pain - Pacu Ondansetron HCl 4 mg 12/01/18 15:55 Zofran Injection IVPUSH Q6H PRN NAUSEA AND/OR VOMITING Oxycodone HCl 5 mg 12/01/18 15:55 12/01/18 21:37 Roxicodone - PO 12/02/18 14:02 5 mg Q4H PRN Administration PAIN LEVEL 4 - 6 Problem List - Problems (1) Abdominal pain Assessment/Plan: -most likely secondary to biliary colic -MRCP done shows no evidence of choledocolithiasis -IV hydration -pain control -stool cultures negative Code(s): R10.9 - UNSPECIFIED ABDOMINAL PAIN Qualifiers: Abdominal location: unspecified location Qualified Code(s): R10.9 - Unspecified abdominal pain (2) Choledocholithiasis Assessment/Plan: -Surgery on board, recommendations appreciated -POD #1 laparoscopic cholecystectomy _MRCP shows no evidence of choledoclithiasis Code(s): K80.50 - CALCULUS OF BILE DUCT W/O CHOLANGITIS OR CHOLECYST W/O OBST (3) Biliary colic Assessment/Plan: -IV hydration -Ceftriaxone and Flagyl -POD#1 laparoscopic cholecystectomy -pain control Code(s): K80.50 - CALCULUS OF BILE DUCT W/O CHOLANGITIS OR CHOLECYST W/O OBST
--- NOTE | 2018-12-02 08:20 | SPA.POSTOP ---
- POST-OP NOTE POD 1, s/p Laparoscopic cholecystectomy Pt seen and examined. Reports she is feeling well. Nop issues overnight. Pain is controlled. Tolerating diet. Has been oob to the restroom, voiding without issue. Denies cp/sob, n/v/d. Vital Signs Temp 98.6 F 12/02/18 06:00 Pulse 66 12/02/18 06:00 Resp 20 12/02/18 06:00 BP 102/56 L 12/02/18 06:00 Pulse Ox 97 12/01/18 21:00 Intake & Output 12/01/18 12/01/18 12/02/18 11:59 23:59 11:59 Intake Total 1000 2470 900 Output Total 0 Balance 1000 2470 900 Intake: IV 900 1750 900 Normal Saline - 1,000 ml 900 750 900 @ 75 mls/hr IV ASDIR CARLOS Rx#:[id number] IVPB 100 300 Oral 420 Output: Urine 0 Other: Voiding Method Toilet Bedpan # Unmeasured Voids Void 1 Bowel Movement No CBC, BMP 11/30/18 07:08 11/30/18 07:08 Gen: awake, alert, nad resting in bed Resp: unlabored on RA Abdo: soft, nt/nd, incisions c/d/i with dermabond in place A/P: 48 y/o F w/ PMHx asthma, ovarian cyst a/w umbilical and RLQ pain, Abdominal CT revealing abnormal gallbladder/gallstones, MRCP done no evidence of choledocolithiasis, pt now POD 1, s/p Lap Nadine. Afebrile, Vss, Am labs pending Doing well, pain controlled, tolerating PO. -F/U Am labs -Continue reg diet -OOB ad magalys -No abx needed -Pt should f/u with Dr Post in the office in 10-14 days -Please contact surgery with any questions/concerns d/w attending Dr Post
--- NOTE | 2018-12-02 08:26 | PN ---
Progress Note, Physician - Current Medication List Current Medications: Active Medications Acetaminophen (Ofirmev Injection -) 1,000 mg IVPB Q6H PRN PRN Reason: MODERATE PAIN Hydromorphone HCl (Dilaudid Vial -) 2 mg IVPB Q6H PRN PRN Reason: PAIN LEVEL 6-10 Sodium Chloride (Normal Saline -) 1,000 mls @ 75 mls/hr IV ASDIR CARLOS Last Admin: 12/01/18 16:10 Dose: 75 mls/hr Ibuprofen (Caldolor Injection -) 800 mg IVPB Q6H PRN PRN Reason: Pain - Pacu Ondansetron HCl (Zofran Injection) 4 mg IVPUSH Q6H PRN PRN Reason: NAUSEA AND/OR VOMITING Oxycodone HCl (Roxicodone -) 5 mg PO Q4H PRN PRN Reason: PAIN LEVEL 4 - 6 Stop: 12/02/18 14:02 Last Admin: 12/01/18 21:37 Dose: 5 mg - Objective Vital Signs: Vital Signs Temperature 98.6 F 12/02/18 06:00 Pulse Rate 66 12/02/18 06:00 Respiratory Rate 20 12/02/18 06:00 Blood Pressure 102/56 L 12/02/18 06:00 O2 Sat by Pulse Oximetry (%) 97 12/01/18 21:00 Cardiovascular: Yes: Regular Rate and Rhythm Respiratory: Yes: Regular, CTA Bilaterally Gastrointestinal: Yes: Normal Bowel Sounds, Soft. No: Tenderness Labs: CBC, BMP 11/30/18 07:08 11/30/18 07:08 Problem List - Problems (1) Abdominal pain Assessment/Plan: Abdominal Pain most likely related to gall bladder disease based on CT and U/S finding. Lipase normal, pancreatitis unlikely. -continue NPO -MRCP noted -GI and Surgery consultations -monitor LFTs - IV Fluids -ID consult regarding antibiotics for cholecystits which in the absence of fever and white count is less likely Operative Date: 12/01/18 Pre-Operative Diagnosis: Biliary colic Operation: Laparoscopic cholecystectomy Findings: hydrops of gallbladder Post-Operative Diagnosis: Same as Pre-op Surgeon: Hernan Post Code(s): R10.9 - UNSPECIFIED ABDOMINAL PAIN Qualifiers: Abdominal location: unspecified location Qualified Code(s): R10.9 - Unspecified abdominal pain (2) Choledocholithiasis Assessment/Plan: As above. -await MRCP Code(s): K80.50 - CALCULUS OF BILE DUCT W/O CHOLANGITIS OR CHOLECYST W/O OBST (3) Anemia Assessment/Plan: -workup ordered including Iron studies, stool for occult blood, obtain previous levels -GI consult -will consider Heme if no GI source Code(s): D64.9 - ANEMIA, UNSPECIFIED
[2018-12-02 09:13] LABS: BASO % 0.6 % (0-2.0); EOS % 0.1 % (0-4.5); HEMATOCRIT 34.9 % (32.4-45.2); HEMOGLOBIN 11.2 GM/dL (10.7-15.3); LYMPH % 21.4 % (8-40); MCH 27.9 pg (25.7-33.7); MCHC 32.1 g/dl (32.0-36.0); MEAN CELL VOLUME 86.8 fl (80-96); MEAN PLT VOLUME 8.4 fl (7.5-11.1); MONO % 4.3 % (3.8-10.2); NEUT % 73.6 % (42.8-82.8); PLATELET COUNT 364 K/MM3 (134-434); RBC 4.02 M/mm3 (3.60-5.2); RDW 13.5 % (11.6-15.6); WHITE BLOOD COUNT 12.9 K/mm3 (4.0-10.0)
[2018-12-02 09:42] LABS: BILIRUBIN,TOTAL 0.3 mg/dL (0.2-1); BLOOD UREA NITROGEN 8.6 mg/dL (7-18); CALCIUM 8.3 mg/dL (8.5-10.1); CREATININE 0.8 mg/dL (0.55-1.3); POTASSIUM 4.1 mmol/L (3.5-5.1); TOT PROT 6.7 g/dl (6.4-8.2)
[2018-12-02] MEDS: oxyCODONE HCL 5 MG TABLET PO PRN (10:05)
--- NOTE | 2018-12-02 12:44 | DS ---
Physical Examination Vital Signs: Vital Signs Temperature 98.6 F 12/02/18 06:00 Pulse Rate 66 12/02/18 06:00 Respiratory Rate 20 12/02/18 06:00 Blood Pressure 102/56 L 12/02/18 06:00 O2 Sat by Pulse Oximetry (%) 97 12/01/18 21:00 Labs: CBC, BMP 12/02/18 08:45 12/02/18 08:45 Discharge Summary Reason For Visit: COMMON BILE DUCT CALCULUS, ABDOMINAL PAIN Current Active Problems Abdominal pain (Acute) Anemia (Acute) Biliary colic (Acute) Cholecystitis (Acute) Choledocholithiasis (Acute) Condition: Improved - Instructions Diet, Activity, Other Instructions: Dr. Post Discharge Instructions Dear EFFIE HASSAN, Post Operative Instructions Physical activity Resume your normal everyday activity as tolerated no heavy lifting or exercise until seen by your surgeon. You may walk unlimited amounts of and climb stairs. You may resume driving the car when you feel safe and comfortable behind the wheel. Wound care If you have a bandage, leave it on, and keep dry for 48 - 72 hours. After that time discard the outer bandage. If there are tapes on the skin under the outer bandage, leave them in place. They will peel off in the next 7 to 10 days. Do Not peel them off. You may shower 2 days after surgery. If there are tapes present on the skin, they can get wet. Diet There are no dietary restrictions. Eat healthy, high-fiber foods. Drink 6 to 8 glasses of liquid each day. This will assist in keeping your bowels are regular. Pain management You may take Tylenol or acetaminophen or Ibuprofen (for example, Motrin, Advil etc.) Any pain prescription medication ordered should be taken as prescribed for moderate to severe pain. Call Dr. Post for any of the following: Severe pain not relieved by medication Fever of 101 or higher Excessive bleeding or drainage on dressing Inability to urinate Call the office at [phone] for a post operative appointment in 7 - 10 days. Referrals: Hector Johnson MD [Primary Care Provider] - 1 Week Disposition: HOME - Home Medications Comprehensive Discharge Medication List: Ambulatory Orders NK [No Known Home Medication] 10/04/17
[2018-12-02 17:38] VITALS: BP 96/57; PULSE 67
--- NOTE | 2018-12-03 18:02 | PATH ---
Surgical Pathology Report Patient Name: EFFIE HASSAN Med. Rec. #: [id number] /Age/Gender: 1970 (Age: 48) / F Account: [id number] Location: [address] [place] [address]/[facility] Taken: 12/01/2018 Received: 12/02/2018 Reported: 12/03/2018 Physicians: MD Rommel Bell M.D. Specimen(s) Received GALLBLADDER Clinical History Acute cholecystitis Final Diagnosis GALLBLADDER, LAPAROSCOPIC CHOLECYSTECTOMY: ACUTE AND CHRONIC CHOLECYSTITIS WITH CHOLELITHIASIS. Electronically Signed Jenae Liao M.D. Gross Description Received in formalin, labeled "gallbladder," is a 10.0 x 3.0 x 2.8 cm. gallbladder with a 0.2 cm. in length portion of cystic duct attached. The outer surface is gallardo-hayes with a focal defect and varies from smooth to shaggy. The lumen contains yellow, sludgelike bile as well as abundant irregular to fragmented choleliths ranging from 0.1-1.1 cm in greatest dimension. The mucosa is gallardo and mostly eroded. The wall of the gallbladder measures 0.1 cm. in thickness. Value Analyst sections are submitted in one cassette. 12/02/201812/02/2018
== END 2018-12-02 13:38 | disposition home or self-care (01) | DRG 263 ==
LOC: JER 20:58 → JERBED 11-29 04:06 → J5S 11-29 06:48
PROVIDERS: ADMIT Family Medicine; ATTEND Family Medicine
PROC: 0FT44ZZ Resection of Gallbladder, Percutaneous Endoscopic Approach (ICD-10-PCS; principal; 2018-12-01 11:00)
DX: K80.00 Calculus of gallbladder with acute cholecystitis without obstruction (principal); N83.209 Unspecified ovarian cyst, unspecified side; J45.909 Unspecified asthma, uncomplicated; E66.8 Other obesity; Z68.41 Body mass index [BMI] 40.0-44.9, adult; D64.9 Anemia, unspecified; D25.9 Leiomyoma of uterus, unspecified; R16.0 Hepatomegaly, not elsewhere classified; K82.1 Hydrops of gallbladder
CPT/HCPCS: 36415; 74177-TC; 74181-TC; 76705-TC; 80053; 81003; 83690; 84703; 85025; 85027; 87040; 87045; 87046; 87086; 88304-TC; 93005; 93010; 94760; 99283-25; J0131; J7030

== ENCOUNTER 2022-08-02 12:36 | Emergency (ER) | payer OTHER ==
[2022-08-02] MEDS ORDERED: ACETAMINOPHEN 1000 MG/100 ML BAG IVPB ONE (13:04)
[2022-08-02 13:05] VITALS: BP 114/71; PULSE 92; RESP 16; TEMP 100; BMI 39.6
[2022-08-02] MEDS ORDERED: ACETAMINOPHEN INJECTION 100 ML IVPB ONE (13:19)
[2022-08-02 13:41] LABS: EPITHELIAL CELLS RARE /hpf
[2022-08-02 14:06] LABS: HEMATOCRIT 36.9 % (32.4-45.2); HEMOGLOBIN 12.3 G/dL (10.7-15.3); MCH 28.8 pg (25.7-33.7); MCHC 33.4 g/dl (32.0-36.0); MEAN CELL VOLUME 86.2 fl (80-96); MEAN PLT VOLUME 9.4 fl (7.5-11.1); PLATELET COUNT 237.5 10^3/uL (134-434); RBC 4.28 10^6/uL (3.60-5.2); RDW 14.2 % (11.6-15.6); WHITE BLOOD COUNT 6.4 10^3/uL (4.0-10.8)
[2022-08-02 14:11] LABS: ALBUMIN 3.7 g/dl (3.4-5.0); BILIRUBIN,TOTAL 0.6 mg/dl (0.2-1); CALCIUM 8.7 mg/dl (8.5-10); CREATININE 0.8 mg/dl (0.55-1.3); TOT PROT 7.1 g/dl (6.4-8.2)
[2022-08-02 14:13] LABS: PLATELET ESTIMATE ADEQUATE
[2022-08-02 17:05] LABS: LACTIC ACID 2.1 mmol/L (0.4-2.0)
== END 2022-08-02 15:25 | disposition home or self-care (01) ==
LOC: FER 12:36
PROC: 3E0333Z Introduction of Anti-inflammatory into Peripheral Vein, Percutaneous Approach (ICD-10-PCS; principal; 2022-08-02)
DX: R10.31 Right lower quadrant pain (principal)
CPT/HCPCS: 0241U-QW; 36415; 74177-TC; 80053; 81003; 81015; 83605; 85027; 87086; 99285-25; Q9967